=== PATIENT | female | born 1970 | race Caucasian/White ===

== ENCOUNTER → 2019-12-19 | Outpatient (REF) | payer OTHER ==
[2019-12-19 17:10] LABS: FREE T4 0.93 NG/DL (0.76-1.46); THYROID STIMULATING HORMONE 1.22 uIU/ML (0.358-3.740); TOTAL 25(OH) VITAMIN D 24.3 NG/ML (30.0-100.0)
== END ==
LOC: M SFHCRHEU 13:59
PROVIDERS: ATTEND Internal Medicine
DX: R53.82 Chronic fatigue, unspecified (principal)
CPT/HCPCS: 36415; 82306; 82728; 83540; 84439; 84443; G0463

== ENCOUNTER 2020-05-05 08:54 | Inpatient (IN) | payer OTHER ==
[~2020-05-05] VITALS: Ht 154.9 cm; Wt 42.9 kg
[2020-05-05] MEDS ORDERED: PROM12.56 (09:05)
[2020-05-05] MEDS ORDERED: SUCR1ORA2 (09:05)
[2020-05-05] MEDS ORDERED: METO5TAB2 (09:05)
[2020-05-05 09:40] LABS: BASO % 0.3 % (0.0-1.0); EOS % 0.5 % (0.0-3.0); HEMATOCRIT 42.9 % (36.0-47.0); HEMOGLOBIN 14.3 g/dl (12.0-15.5); LYMPH # 1.6 10^3/uL (1.5-5.0); LYMPH % 24.5 % (24.0-44.0); MEAN CORPUSCULAR HEMOGLOBIN 30.4 pg (27.0-33.0); MEAN CORPUSCULAR HGB CONC 33.3 g/dl (32.0-36.5); MEAN CORPUSCULAR VOLUME 91.1 fl (80.0-96.0); MONO # 0.7 10^3/uL (0.0-0.8); MONO % 11.4 % (0.0-5.0); NEUTROPHILS # 4.1 10^3/uL (1.5-8.5); NEUTROPHILS % 63.1 % (36.0-66.0); PLATELET COUNT, AUTOMATED 264 10^3/uL (150-450); RED BLOOD COUNT 4.71 10^6/uL (4.00-5.40); WHITE BLOOD COUNT 6.5 10^3/uL (4.0-10.0)
[2020-05-05 10:02] LABS: ALBUMIN 4.2 GM/DL (3.2-5.2); BILIRUBIN,DIRECT 0.1 MG/DL (0.0-0.2); BILIRUBIN,TOTAL 0.5 MG/DL (0.2-1.0)
[2020-05-05] MEDS ORDERED: ONDANSETRON 4MG/2ML VIAL IV ONE (10:15)
[2020-05-05] MEDS ORDERED: NS 1,000 ML IV ONE (10:15)
[2020-05-05 10:17] LABS: MAGNESIUM LEVEL 2.2 MG/DL (1.8-2.4)
[2020-05-05] MEDS ORDERED: ISOVUE-370 76% 100ML VIAL As Ordered ONE (10:29)
[2020-05-05 10:40] LABS: THYROID STIMULATING HORMONE 1.48 uIU/ML (0.358-3.740)
[2020-05-05] MEDS ORDERED: ACET-840 PO (12:36)
--- NOTE | 2020-05-05 14:57 | REP ---
REASON FOR EXAM: Abdominal pain. PRIORS: None. CONTRAST: 100 mL of Isovue 370. The patient states there was a prior CT of the abdomen and pelvis at [facility], however, secondary to the emergent nature of today's examination, this examination will be interpreted without the prior for comparison. If and when the prior becomes available for review an addendum report will be made necessary. The lung bases are clear. There is gross gastric distention with predominantly fluid but with gas as well. The duodenum appears extremely narrowed, however, there is some fluid seen distal to the narrow portion of the duodenum, which again undergoes luminal narrowing at the level of the duodenal sweep/fourth portion. There is gas within multiple small bowel loops with gas and stool seen throughout the colon. There is a small amount of free fluid seen in the periduodenal area without evidence of free periduodenal air. No free air is seen throughout the abdomen or pelvis. The liver, gallbladder, spleen, pancreas, and adrenal glands and kidneys are within normal limits. The abdominal aorta and para-aortic regions are within normal limits. Bone window technique throughout the examination shows the osseous structures to be within normal limits. IMPRESSION: 1. There is evidence of at least partial gas outlet obstruction. There is significant duodenal edema and fluid in the periduodenal area. In addition, the aorta/SMA interval is very narrowed and compresses both the duodenal sweep and the left renal vein. This could, at least, impart be responsible for the suspected partial gastric outlet obstruction. In addition, I cannot rule out the possibility of a duodenal ulcer responsible for the aforementioned findings as well. 2. Other findings as described above. Electronically Signed by Pieter Barnett DO 05/05/2020 05:28 P
[2020-05-05] MEDS ORDERED: KETOROLAC 30 MG/ML 1ML VIAL IV PRN (16:15)
[2020-05-05] MEDS ORDERED: MORPHINE 2 MG/ML 1ML VIAL (J2270) IV PRN (16:15)
[2020-05-05] MEDS ORDERED: ONDANSETRON 4MG/2ML VIAL IV PRN (16:15)
[2020-05-05] MEDS: D5W/LR 1,000 ML IV SCH (16:42)
[2020-05-05 20:14] VITALS: BP 132/82
[2020-05-05] MEDS: PANTOPRAZOLE 40MG VIAL (C9113 PER 1) IV SCH (20:43)
[2020-05-05 22:00] VITALS: BP 119/70
[2020-05-06] MEDS: D5W/LR 1,000 ML IV SCH ×2 (00:21→08:33)
[2020-05-06 02:00] VITALS: BP 115/56
[2020-05-06 06:00] VITALS: BP 111/68
--- NOTE | 2020-05-06 07:27 | REP ---
CHEST: Two AP views of the chest are performed. There is a nasogastric tube. The sideport is at the gastroesophageal junction. The tube should be advanced. Lungs are free of infiltrate. Heart and mediastinum are unremarkable. Electronically Signed by Kevin Blount MD 05/07/2020 09:12 A
[2020-05-06 07:41] LABS: BASO % 0.5 % (0.0-1.0); EOS # 0.2 10^3/uL (0.0-0.5); EOS % 3.4 % (0.0-3.0); HEMATOCRIT 35.6 % (36.0-47.0); LYMPH # 1.6 10^3/uL (1.5-5.0); LYMPH % 35.2 % (24.0-44.0); MEAN CORPUSCULAR HEMOGLOBIN 30.5 pg (27.0-33.0); MEAN CORPUSCULAR HGB CONC 33.1 g/dl (32.0-36.5); MONO # 0.5 10^3/uL (0.0-0.8); MONO % 10.6 % (0.0-5.0); NEUTROPHILS # 2.2 10^3/uL (1.5-8.5); NEUTROPHILS % 50.1 % (36.0-66.0); PLATELET COUNT, AUTOMATED 216 10^3/uL (150-450); RED BLOOD COUNT 3.87 10^6/uL (4.00-5.40); WHITE BLOOD COUNT 4.4 10^3/uL (4.0-10.0)
[2020-05-06 08:02] LABS: HEMOGLOBIN 11.8 g/dl (12.0-15.5)
[2020-05-06 08:14] LABS: BLOOD UREA NITROGEN 13 MG/DL (7-18); CALCIUM LEVEL 8.5 MG/DL (8.5-10.1); CARBON DIOXIDE LEVEL 32 MEQ/L (21-32); CHLORIDE LEVEL 103 MEQ/L (98-107); CREATININE FOR GFR 0.58 MG/DL (0.55-1.30); GLOMERULAR FILTRATION RATE > 60.0 (>51); GLUCOSE, FASTING 110 MG/DL (70-100); POTASSIUM SERUM 2.9 MEQ/L (3.5-5.1); SODIUM LEVEL 140 MEQ/L (136-145)
[2020-05-06] MEDS: PANTOPRAZOLE 40MG VIAL (C9113 PER 1) IV SCH ×2 (08:33→21:44)
[2020-05-06 11:00] VITALS: BP 118/70
[2020-05-06 14:00] VITALS: BP 124/60
[2020-05-06] MEDS: POTASSIUM CHLORIDE INJ 40 MEQ in D5W/LR 1,000 ML IV SCH (16:43)
[2020-05-06 18:00] VITALS: BP 119/58
[2020-05-06 22:00] VITALS: BP 131/67
[2020-05-07 02:00] VITALS: BP 108/56
[2020-05-07] MEDS: POTASSIUM CHLORIDE INJ 40 MEQ in D5W/LR 1,000 ML IV SCH ×2 (05:10→16:10)
[2020-05-07 06:00] VITALS: BP 113/70
[2020-05-07] MEDS: PANTOPRAZOLE 40MG VIAL (C9113 PER 1) IV SCH ×2 (08:39→21:08)
--- NOTE | 2020-05-07 08:42 | IPN ---
DATE OF SERVICE: 05/06/2020 HISTORY: The patient was admitted yesterday with a several-month history leading up to a gastric outlet obstruction diagnosis. She has been unable to keep down any food for quite some time and has lost 13-18 pounds. She was admitted with a nasogastric (NG) tube and intravenous (IV) hydration. She initially drained a fairly large amount of fluid from the tube but overnight has had minimal output. She reports she has had a small amount of flatus, and she denies any abdominal pain currently. VITAL SIGNS: Show that she has been afebrile. Her pulse is in the low to mid 70s, and blood pressure is good. INTAKE AND OUTPUT: Showed that she has had a good urine output this morning. Her NG tube has had only 25 mL recorded out today. PHYSICAL EXAMINATION: The patient is sitting up in the bed dabbing at her nose because of some drainage around the NG tube. This appears to be just local irritation. She is alert and oriented and does complain of some throat discomfort from the NG tube. Heart examination shows a regular rhythm. Her lungs are clear. The abdomen shows active bowel sounds and is soft and without any tenderness. LABORATORY STUDIES: Today show a white count of 4000, hemoglobin 12, hematocrit 36, and a platelet count of 216,000. Differential count is normal. Her chemistry profile shows a potassium of 2.9, which is unchanged from yesterday. Her other electrolytes are normal. IMPRESSION: The patient has a history and CT scan consistent with gastric outlet obstruction. The etiology is unknown. The CT scan showed no evidence of mass. PLAN: The patient will be continued on her twice-daily Protonix IV. Her NG tube will be discontinued, as it has had minimal out. She will remain nothing by mouth. She is scheduled for an upper endoscopy tomorrow to try to diagnose the etiology of her obstruction. Additional potassium will be placed in her IV fluid, and the rate will be decreased. A COVID-19 test will be obtained preoperatively. JACKLYND
--- NOTE | 2020-05-07 08:58 | HPE ---
DATE OF ADMISSION: 05/05/2020 ADMITTING DIAGNOSIS: Gastric outlet obstruction. HISTORY OF THE PRESENT ILLNESS: The patient is a very pleasant 49-year-old woman who presented to the emergency department at 8:54 a.m. on 05/05/2020 complaining of persistent nausea and vomiting with an inability to take oral intake and loss of weight. She reported that she had been having problems, particularly since December of 2019. She does report that she had some problems similar in nature back in 2015. She reports that since December, her problems have worsened. She has had progressively worsening difficulty with food coming back up after meals. She reports crampy abdominal pains. She has been having some bowel function, but this is diminished. She reports that she was seen at [facility] on 04/06/2020 with complaints of dizziness and weakness. She was then seen again at [facility] on 04/25/2020. She reports that in November, she weighed 102 pounds, and her weight is currently down to about 88 pounds. She reports that she will eat, and then she will have this sensation of bubbling or churning in the abdomen with cramps, and eventually she will vomit back up most if not all of what she has eaten. She had been taking some [id number]-nwi-fpbvope Pepcid. She was recently provided some Reglan and Carafate by either the [facility] or her primary physician, Dr. Nelson. She reports that she had been requesting a referral to gastroenterology, but this had not yet been accomplished. In the emergency department at [facility], she was evaluated with some laboratory work and also had a CT scan of the abdomen and pelvis obtained. The CT scan revealed a distended and enlarged stomach. The radiologist reported evidence for narrowing of the duodenum. He did report that there was some gas within some small bowel loops and stool in the colon. The patient had a nasogastric tube inserted in the emergency department, and she is now admitted for further evaluation and management of her apparent gastric outlet obstruction. ALLERGIES: The patient reports no known drug allergies.. MEDICATIONS: Her current listed medications include only some acetaminophen on an as-needed basis. She had been provided previously with some Reglan and promethazine and Carafate but indicates that at the time of her admission, she has not actually been taking these. She had also occasionally taken some [id number]-[id number] Pepcid. SURGICAL HISTORY: Is significant for a tubal ligation back in 1996. MEDICAL HISTORY: The patient had undergone evaluation for some positive rheumatologic tests in November. Apparently, the tests pointed towards scleroderma, but the moderate needs teacher did not feel this was the case. She has no other active medical issues beyond her gastrointestinal (GI) problem. SOCIAL HISTORY: The patient has been helping care for her mother. She is and is a dependent. She is a former smoker and reports that she quit any tobacco use a month ago. She denies any alcohol intake. REVIEW OF SYSTEMS: Shows no history of chest pain or palpitations. She has no respiratory symptoms. She has no history of deep venous thrombosis (DVT) or pulmonary embolus. She denies any dysuria or hematuria or renal problems. She has no bone or joint issues. She has not noticed any rectal bleeding or hematemesis. She denies any history of hepatitis, pancreatitis, or jaundice. FAMILY HISTORY: The patient reports that her mother has had stomach issues, though these are not defined. PHYSICAL EXAMINATION: Reveals a very thin pleasant woman sitting up in the stretcher. She is alert and oriented. Most recent vital signs are reviewed. She is not tachycardiac, and her blood pressure is good. The patient does become emotional when describing her persistent problems and her inability so far to have obtained an answer to why she is having so many problems. Skin: Is warm and dry. Sclerae are anicteric. Mucous membranes are moist. The neck is supple without mass. She has no supraclavicular adenopathy. Heart examination shows a regular rate and rhythm. The lungs are clear. The abdomen is flat to perhaps mildly protuberant. She does have bowel sounds present. She has some mild tenderness in the right upper quadrant area. There is no mass appreciated. There is no hernia identified. Extremities are thin with palpable radial and pedal pulses and no edema. LABORATORY STUDIES: Include a complete blood count (CBC) showing a white count of 6, hemoglobin of 14, hematocrit 43, and platelet count of 264,000. Differential count shows 63% neutrophils, 24% lymphocytes, and 11% monocytes. Chemistry profile included a point of care chemistry profile showing a glucose of 113, potassium 2.9, chloride of 89, with a BUN of 24, and a creatinine of 0.9. Her liver function tests were all normal with a normal magnesium. Albumin is 4.2 with a protein of 8, and her lipase is normal at 123. She had a TSH level done that was 1.48. Her CT scan images and report I reviewed personally. She definitely has a markedly enlarged stomach. The course of the duodenum past the duodenal bulb is not entirely clear to me on reviewing her CAT scan, as this is not outlined by contrast or air. She does have some air and fluid more distally in the small bowel. IMPRESSION: Is gastric outlet obstruction with 3-4 months of progressive symptoms. She has had a weight loss of approximately 15 pounds over this period of time. PLAN: The patient was counseled that she clearly has a blockage of the outlet of her stomach, and this very nicely explains her symptoms. I advised her that the probably most common cause for a gastric outlet obstruction would be severe peptic ulcer disease. It is also possible that this could be caused by a malignant lesion, either of the stomach or duodenum or pancreas, although there was no mass identified by CT. I have recommended that we admit her to treat her for her inability to tolerate any oral intake at this point but also try to identify the cause of her obstruction. The NG tube will be continued to low intermittent suction at this point. I will continue her on some IV fluids. If it is clear that her obstruction persists despite treatment, then initiation of total parenteral nutrition would be appropriate. I advised her that we will need to perform an upper endoscopy within the next day or two to try to diagnose the etiology of her obstruction. She will be started on Protonix 40 mg IV twice daily. She does not require any antibiotics at this time. We will recheck her laboratories in the morning. She had an opportunity to ask questions. She is agreeable with the plan as I have outlined it. [facility]
[2020-05-07] MEDS ORDERED: LIDOCAINE 2% 100MG/5ML SDV (FOR ANES.) As Ordered ONE (09:13)
[2020-05-07] MEDS ORDERED: propofoL 200 MG/20 ML VIAL As Ordered ONE (09:13)
[2020-05-07] MEDS ORDERED: KCL 10MEQ IN STERILE WATER 100ML As Ordered ONE (10:24)
[2020-05-07] MEDS ORDERED: KCL 10MEQ/100ML SWI (KRUN) SINGLE DOSE IV ONE ×2 (10:45)
--- NOTE | 2020-05-07 12:31 | ROOR ---
Patient Name: Dustin Alfaro Procedure Date: 05/07/2020 10:11 AM Date of : 1970 Age: 49 Room: Main OR Gender: Female Note Status: Finalized Procedure: Upper GI endoscopy Indications: Gastric outlet obstruction Providers: Milad Edouard MD Referring MD: 2. Inpatient 2. Inpatient Requesting Provider: Medicines: Monitored Anesthesia Care Complications: No immediate complications. Procedure: Pre-Anesthesia Assessment: - Prior to the procedure, a History and Physical was performed, and patient medications and allergies were reviewed. The patient is competent. The risks and benefits of the procedure and the sedation options and risks were discussed with the patient. All questions were answered and informed consent was obtained. Patient identification and proposed procedure were verified by the physician, the nurse and the rake operator in the procedure room. Mental Status Examination: alert and oriented. Airway Examination: normal oropharyngeal airway and neck mobility. Prophylactic Antibiotics: The patient does not require prophylactic antibiotics. Prior Anticoagulants: The patient has taken no previous anticoagulant or antiplatelet agents. ASA Grade Assessment: II - A patient with mild systemic disease. After reviewing the risks and benefits, the patient was deemed in satisfactory condition to undergo the procedure. The anesthesia plan was to use monitored anesthesia care (MAC). Immediately prior to administration of medications, the patient was re-assessed for adequacy to receive sedatives. The heart rate, respiratory rate, oxygen saturations, blood pressure, adequacy of pulmonary ventilation, and response to care were monitored throughout the procedure. The physical status of the patient was re-assessed after the procedure. The Endoscope was introduced through the mouth, and advanced to the pylorus. The upper GI endoscopy was accomplished without difficulty. The patient tolerated the procedure well. Findings: The examined esophagus was normal. A medium amount of food (residue) was found on the greater curvature of the stomach. A benign-appearing, intrinsic severe stenosis was found at the pylorus. This was non-traversed. There appeared to be a pinpint opening. The mucosa extending to thie point appeared normal. One non-bleeding linear gastric ulcer with no stigmata of bleeding was found in the prepyloric region of the stomach. The lesion was 7 mm in largest dimension. There was some deformity of this area. Impression: - Normal esophagus. - A medium amount of food (residue) in the stomach. - Gastric stenosis was found at the pylorus. - Non-bleeding gastric ulcer with no stigmata of bleeding. - No specimens collected. Recommendation: - Return patient to [facility] for [facility] care. - NPO. - Perform magnetic resonance imaging (MRI) with gadolinium at appointment to be scheduled. Milad Edouard MD Milad Edouard MD 05/07/2020 12:31:07 PM Electronically signed by Milad Edouard MD Number of Addenda: 0 Note Initiated On: 05/07/2020 10:11 AM Estimated Blood Loss: Estimated blood loss: none.
[2020-05-07] MEDS ORDERED: LIDOCAINE 1% MDV 20ML VIAL As Ordered ONE (12:43)
[2020-05-07 14:47] LABS: BLOOD UREA NITROGEN 8 MG/DL (7-18); CALCIUM LEVEL 8.6 MG/DL (8.5-10.1); CARBON DIOXIDE LEVEL 31 MEQ/L (21-32); CHLORIDE LEVEL 110 MEQ/L (98-107); CREATININE FOR GFR 0.52 MG/DL (0.55-1.30); GLOMERULAR FILTRATION RATE > 60.0 (>51); GLUCOSE, FASTING 74 MG/DL (70-100); POTASSIUM SERUM 3.8 MEQ/L (3.5-5.1); SODIUM LEVEL 144 MEQ/L (136-145)
[2020-05-07] MEDS ORDERED: AMINO AC/ELECTROLYTE/DEX/CALC 2,000 ML IV SCH (18:00)
[2020-05-07] MEDS ORDERED: FAT EMULSION IV 20% 500 ML IV SCH (18:00)
[2020-05-07] MEDS ORDERED: PROHANCE 279.3MG/ML 5ML VIAL As Ordered ONE (18:04)
[2020-05-07] MEDS: SODIUM CHLORIDE 0.9% INJ 10 ML SYR IV SCH (19:03)
--- NOTE | 2020-05-07 20:58 | REPVR ---
PROCEDURE INFORMATION: Exam: MR Abdomen Without and With Contrast Exam date and time: 05/07/2020 6:36 PM Age: 49 years old Clinical indication: Abdominal tenderness and bloating and constipation and mass, lump, or swelling and nausea and vomiting; Epigastric; Patient HX: Pain nausea vomiting diarrhea, attn pancreas; Additional info: Gastric outlet obstruction, evaluate for tumor TECHNIQUE: Imaging protocol: MR of the abdomen without and with intravenous contrast. Contrast material: PROHANCE; Contrast volume: 8 ml; Contrast route: INTRAVENOUS (IV); COMPARISON: CT ABD/PEL W/IV CONTRAST ONLY 05/05/2020 10:38 AM FINDINGS: Liver: The liver is normal. Gallbladder and bile ducts: The gallbladder is normal.No calcified calculi. Normal bile ducts. Pancreas: The pancreas is normal. Spleen: The spleen is normal. Adrenals: The adrenals are normal. Kidneys and ureters: The kidneys are normal.No hydronephrosis. Stomach and bowel: The stomach is distended and contains debris and fluid. There is a 4 cm length of the descending duodenum which is persistently circumferentially thick-walled. Series 301 images 10-12 series 501 images 19-21. Also seen on series 602, images 18 to 21. Intraperitoneal space: Unremarkable Arteries: No abdominal aortic aneurysm. Bones/joints: Unremarkable for Soft tissues: Unremarkable. IMPRESSION: Gastric distension. The descending duodenum appears persistently thick-walled on multiple sequences. This could represent inflammation or neoplasm. Electronically signed by: Álvaro Scott On 05/07/2020 20:58:07 PM
[2020-05-07] MEDS: SODIUM CHLORIDE 0.9% INJ 10 ML SYR IV PRN (21:08)
[2020-05-07 22:00] VITALS: BP 152/72
[2020-05-08 02:00] VITALS: BP 129/81
[2020-05-08] MEDS: SODIUM CHLORIDE 0.9% INJ 10 ML SYR IV SCH ×2 (05:43→19:03)
[2020-05-08 06:00] VITALS: BP 127/64
[2020-05-08] MEDS: PANTOPRAZOLE 40MG VIAL (C9113 PER 1) IV SCH ×2 (08:44→20:13)
[2020-05-08] MEDS: SODIUM CHLORIDE 0.9% INJ 10 ML SYR IV PRN (08:53)
[2020-05-08 09:43] LABS: CA19-9 TUMOR MARKER,CARBOHYDRA 8.9 U/ML (<35.0)
[2020-05-08 10:00] VITALS: BP 126/80
--- NOTE | 2020-05-08 10:10 | IPN ---
DATE: 05/07/2020 HISTORY: The patient was admitted on May 05 with a history and CT scan consistent with gastric outlet obstruction. She had an upper endoscopy earlier today which shows perhaps a pinpoint opening at the pylorus with evidence of some deformity and an ulcer just proximal to the pinpoint opening seen. She had some retained food products in the stomach. Vital signs show that she has remained afebrile over the last 24 hours. Her pulse is in the 60s to low 80s. Blood pressure is good and her room air oxygenation is normal. Intake and output show that she had 1230 recorded in yesterday, though this is less than what would be expected from her IV fluids. Her urine output yesterday was 550 and her urine output has increased today. PHYSICAL EXAMINATION: The patient has been alert and oriented. She tolerated her upper endoscopy well. Heart exam shows a regular rate and rhythm. The lungs are clear. The abdomen is flat. She does have active bowel sounds. The abdomen is soft and without significant tenderness. LABORATORY FINDINGS: The patient had a med profile after her endoscopy and this shows a sodium of 144, potassium 3.8, chloride 110, CO2 of 31, BUN of 8, creatinine 0.5 and a glucose of 74. She has a CA 19-9 and a gastrin level that are both pending. IMPRESSION: Gastric outlet obstruction likely secondary to longstanding ulcer disease, though tumor has not been definitively ruled out. PLAN: The patient will have a peripherally inserted central catheter (PICC) line placed and she will be started on intravenous nutrition. An MRI will be obtained to further evaluate the pancreas and duodenum to look for any evidence of malignancy. The gastrin and CA 19-9 were ordered. I anticipate she will come to surgery based on her gastric outlet obstruction. SKYE
[2020-05-08 14:00] VITALS: BP 132/85
[2020-05-08 18:00] VITALS: BP 122/83
[2020-05-08] MEDS ORDERED: AMINO AC/ELECTROLYTE/DEX/CALC 2,000 ML IV SCH (18:00)
[2020-05-08] MEDS ORDERED: FAT EMULSION IV 20% 500 ML IV SCH (18:00)
[2020-05-08 22:00] VITALS: BP 124/83
[2020-05-09 02:00] VITALS: BP 119/81
[2020-05-09] MEDS: SODIUM CHLORIDE 0.9% INJ 10 ML SYR IV SCH ×2 (05:43→17:51)
[2020-05-09 06:00] VITALS: BP 116/80
--- NOTE | 2020-05-09 06:36 | IPN ---
DATE: 05/08/2020 HISTORY: The patient was admitted on 05/05/2020 with evidence for a gastric outlet obstruction. Her esophagogastroduodenoscopy (EGD) showed a pinhole opening perhaps into the duodenum. She had a followup MRI, which reported no evidence of pancreatic mass. She was seen to have a distended stomach with a 4 cm length of the second portion of the duodenum persistently circumferentially thick-walled. There was no concerning adenopathy. The patient has been kept nothing by mouth and has not had any emesis or complaints of abdominal pain. She was started on total parenteral nutrition (TPN) yesterday as well. Vital signs show that she has been afebrile. Her pulse has been in the 60s to about 90. Blood pressure is good and her oxygen saturations are normal. Intake and output shows that yesterday she had 1300 recorded in with 1000 of urine out. PHYSICAL EXAMINATION: The patient is sitting upright in her bed looking quite comfortable. She is actually fairly cheerful. Abdomen is thin and flat. She has positive bowel sounds. Laboratory studies from yesterday included a CA 19-9 that was normal at 8.9. A gastrin level was drawn and is pending. IMPRESSION: The patient has a gastric outlet obstruction, which I suspect strongly is related to longstanding peptic ulcer disease. PLAN: She will continue TPN and proton pump inhibitors twice daily. She will be kept nothing by mouth as she appears to be tolerating her own secretions at least. She does report some flatus. I have recommended that on Monday we obtain a gastrograffin swallow to see if we can document some flow through her duodenum, which might suggest a slight improvement. If she has not improved and the swallow shows no significant passage of contrast, then I think surgery on 05/12/2020, would be warranted. [facility]
[2020-05-09 07:17] LABS: ALBUMIN 3.1 GM/DL (3.2-5.2); ALT/SGPT 15 U/L (12-78); BILIRUBIN,TOTAL 0.4 MG/DL (0.2-1.0); BLOOD UREA NITROGEN 13 MG/DL (7-18); CALCIUM LEVEL 8.4 MG/DL (8.5-10.1); CARBON DIOXIDE LEVEL 28 MEQ/L (21-32); CHLORIDE LEVEL 107 MEQ/L (98-107); CREATININE FOR GFR 0.48 MG/DL (0.55-1.30); GLOMERULAR FILTRATION RATE > 60.0 (>51); GLUCOSE, FASTING 97 MG/DL (70-100); POTASSIUM SERUM 3.6 MEQ/L (3.5-5.1); SODIUM LEVEL 142 MEQ/L (136-145); TOTAL PROTEIN 6.2 GM/DL (6.4-8.2)
[2020-05-09] MEDS: PANTOPRAZOLE 40MG VIAL (C9113 PER 1) IV SCH ×2 (08:14→19:58)
[2020-05-09] MEDS: SODIUM CHLORIDE 0.9% INJ 10 ML SYR IV PRN (08:15)
[2020-05-09 10:00] VITALS: BP 115/74
[2020-05-09 14:00] VITALS: BP 113/70
[2020-05-09 18:00] VITALS: BP 118/68
[2020-05-09] MEDS ORDERED: AMINO AC/ELECTROLYTE/DEX/CALC 2,000 ML IV SCH (18:00)
[2020-05-09] MEDS ORDERED: FAT EMULSION IV 20% 500 ML IV SCH (18:00)
[2020-05-09 22:00] VITALS: BP 112/70
[2020-05-10 02:00] VITALS: BP 108/67
[2020-05-10 06:00] VITALS: BP 105/67
[2020-05-10] MEDS: SODIUM CHLORIDE 0.9% INJ 10 ML SYR IV SCH ×2 (06:08→18:26)
[2020-05-10] MEDS: PANTOPRAZOLE 40MG VIAL (C9113 PER 1) IV SCH ×2 (08:02→20:18)
[2020-05-10] MEDS: SODIUM CHLORIDE 0.9% INJ 10 ML SYR IV PRN ×2 (08:03→20:19)
--- NOTE | 2020-05-10 09:14 | IPN ---
DATE: 05/09/2020 HISTORY: The patient was admitted on 05/05/2020 with a gastric outlet obstruction. Upper endoscopy revealed a pinpoint opening out of the stomach with some superficial ulceration in the distal stomach or pylorus. An MRI showed no evidence of mass, but persistent narrowing of the descending duodenum. A CA 19-9 is normal and her gastrin level ordered on 05/07/2020 has not returned elevated at 175. She is currently nothing by mouth and on total parenteral nutrition. She reports that she feels fine with no pain at all and she has had no nausea or vomiting while nothing by mouth. Vital signs show that she is afebrile with a pulse in the 80s and a normal blood pressure. Room air oxygen saturation is normal. Intake and output shows that her total parenteral nutrition intake is not recorded. Her urine output was brisk at 3100 mL on 05/08/2020. She does report passage of flatus but has not had a bowel movement. PHYSICAL EXAMINATION: The patient is actually quite perky and pleasant today. Heart and lung exam is unremarkable. The abdomen is thin and flat. She has active bowel sounds. There is no tenderness. LABORATORY STUDIES: The patient had a chemistry profile today. Her sodium was 142 with a potassium 3.6. Chloride 107, CO2 is 28, BUN 13, creatinine 0.48, and a glucose of 97. Her total protein is 6.2 with an albumin of 3.1. As noted, her gastrin was 175 with a normal reported range of zero to 115. IMPRESSION: The patient has a gastric outlet obstruction at the level of the duodenum. She has had several months of symptoms culminating her admission. Her CT and MRI do not show any pancreatic pathology, only thickening of her duodenum. Interestingly, she is tolerating her own secretions on twice daily Protonix without the need of a nasogastric (NG) tube. PLAN: The patient will have a gastrograph swallow on Monday morning to see if we can document some flow out of the stomach. If this is the case, then attempting a repeat endoscopy possibly with dilation may be appropriate. If flow is minimal or cannot be documented, then proceeding with surgery I think would be the next reasonable step. The patient was counseled regarding this plan and is agreeable.
[2020-05-10 10:00] VITALS: BP 109/74
[2020-05-10 14:00] VITALS: BP 108/73
--- NOTE | 2020-05-10 17:27 | IPN ---
DATE: 05/10/2020 HISTORY: The patient is being treated for gastric outlet obstruction. She had presented on the with several months of worsening crampy abdominal pain with postprandial vomiting and weight loss. She is currently on total parenteral nutrition and twice daily IV Protonix. She is tolerating her own secretions with no vomiting or abdominal pain while nothing by mouth. Vital signs show that her temperature has been afebrile. Her pulse is in the 80s generally and her blood pressure is good. Intake and output show that yesterday she had 1920 recorded in with [id number] recorded out. PHYSICAL EXAMINATION: The patient is alert and very pleasant. She denies any pain. Skin is warm and dry. Heart exam shows a regular rhythm. The abdomen is thin and flat and without any tenderness. She has not had any further labs today. IMPRESSION: The patient is doing well and tolerating her own secretions while nothing by mouth. PLAN: We will obtain a gastrograph and swallow tomorrow morning to try to better estimate whether she might tolerate a clear liquid diet or not. If this shows persistent obstruction then surgical intervention is tentatively scheduled for Monday. If there is some flow into the duodenum then repeat endoscopy and consideration of dilation may be appropriate.
[2020-05-10 18:00] VITALS: BP 108/73
[2020-05-10] MEDS ORDERED: AMINO AC/ELECTROLYTE/DEX/CALC 2,000 ML IV SCH (18:00)
[2020-05-10] MEDS ORDERED: FAT EMULSION IV 20% 500 ML IV SCH (18:00)
[2020-05-10 22:00] VITALS: BP 107/73
--- NOTE | 2020-05-10 23:46 | REP ---
PICC line insertion under ultrasound guidance. The procedure was performed by MARGE Vallejo, under the direct supervision of Dr. Blount. The risks and benefits of the procedure were explained to the patient and informed consent was obtained both verbally and written. Directly prior to the start of the procedure, a formal timeout was completed in the procedure room. The right medial brachial vein was localized using ultrasound guidance. The skin was prepped and draped in the sterile fashion. Using ultrasound guidance the right medial brachial vein was cannulated and a 0.018 guidewire was inserted and advanced to the SVC using fluoroscopic guidance. The needle was removed and a 5.5 Nigerian dilator and peel-away sheath was inserted over the guidewire. A 5.5 Nigerian dual lumen catheter was cut to the length of 30 cm. The dilator was removed and the catheter was inserted over the guide wire with the tip ending in the SVC. The peel-away sheath was removed and the catheter was flushed with heparinized saline as per hospital protocol. The catheter was affixed to the skin and a sterile dressing was applied. The patient tolerated the procedure well and there were no immediate complications. 0.3 minutes of fluoroscopy time was utilized for this procedure. Some fluoroscopic images are performed with last image hold technology. These images require no additional radiation. Reviewed by MARGE Malhotra 05/08/2020 07:37 A Electronically Signed by Kevin Blount MD 05/10/2020 11:37 P
[2020-05-11 02:00] VITALS: BP 104/71
[2020-05-11] MEDS: SODIUM CHLORIDE 0.9% INJ 10 ML SYR IV SCH ×2 (05:36→18:56)
[2020-05-11 06:00] VITALS: BP 103/70
[2020-05-11] MEDS: PANTOPRAZOLE 40MG VIAL (C9113 PER 1) IV SCH ×2 (08:02→20:29)
[2020-05-11 10:00] VITALS: BP 103/70
[2020-05-11] MEDS ORDERED: E-Z-PAQUE 96% w/w SUSP 176GM BTL As Ordered ONE (10:12)
[2020-05-11] MEDS ORDERED: E-Z-HD 98% w/w 340GM SUSP BTL As Ordered ONE (10:12)
[2020-05-11] MEDS ORDERED: E-Z-GAS II EFFERVESCENT PACKET (SODIUM BICARB./CITRIC ACID/SIMETHICONE) As Ordered ONE (10:12)
[2020-05-11] MEDS ORDERED: GASTROGRAFIN SOLUTION 30ML (Q9963) As Ordered ONE (10:45)
[2020-05-11 14:00] VITALS: BP 103/70
[2020-05-11 18:00] VITALS: BP 105/71
[2020-05-11] MEDS ORDERED: FAT EMULSION IV 20% 500 ML IV SCH (18:00)
[2020-05-11] MEDS ORDERED: AMINO AC/ELECTROLYTE/DEX/CALC 2,000 ML IV SCH (18:00)
[2020-05-11] MEDS: SODIUM CHLORIDE 0.9% INJ 10 ML SYR IV PRN (20:32)
--- NOTE | 2020-05-11 21:59 | REPVR ---
PROCEDURE INFORMATION: Exam: XR Chest, 1 View Exam date and time: 05/11/2020 8:59 PM Age: 49 years old Clinical indication: Device placement; Ng tube; Additional info: Check placement of newly dropped ng TECHNIQUE: Imaging protocol: XR of the chest Views: 1 view. COMPARISON: CR Chest, 1 view 05/05/2020 2:28 PM FINDINGS: Tubes, catheters and devices: NG tube courses through the mediastinum into the left upper quadrant. Inferior tip not visualized although likely located within the gastric body. PICC line enters from the right with the tip at the superior cavoatrial junction. Lungs: Unremarkable. No consolidation. Pleural space: Unremarkable. No pleural effusion. No pneumothorax. Heart/Mediastinum: Unremarkable. No cardiomegaly. Bones/joints: Unremarkable. IMPRESSION: NG tube courses through the mediastinum into the left upper quadrant. Inferior tip not visualized although likely located within the gastric body. Electronically signed by: Andrea Silva On 05/11/2020 21:59:16 PM
[2020-05-11 22:00] VITALS: BP_SYST 114; BP_SYST 121; BP_DIAS 73; BP_DIAS 90
[2020-05-12 02:00] VITALS: BP 108/77
[2020-05-12] MEDS: SODIUM CHLORIDE 0.9% INJ 10 ML SYR IV SCH ×2 (05:35→18:18)
[2020-05-12 06:00] VITALS: BP 110/75
[2020-05-12 06:03] LABS: BASO % 0.5 % (0.0-1.0); EOS # 0.2 10^3/uL (0.0-0.5); EOS % 5.7 % (0.0-3.0); HEMATOCRIT 38.3 % (36.0-47.0); HEMOGLOBIN 12.3 g/dl (12.0-15.5); LYMPH # 1.1 10^3/uL (1.5-5.0); LYMPH % 28.6 % (24.0-44.0); MEAN CORPUSCULAR HEMOGLOBIN 29.6 pg (27.0-33.0); MEAN CORPUSCULAR HGB CONC 32.1 g/dl (32.0-36.5); MEAN CORPUSCULAR VOLUME 92.3 fl (80.0-96.0); MONO # 0.2 10^3/uL (0.0-0.8); MONO % 6.2 % (0.0-5.0); NEUTROPHILS # 2.3 10^3/uL (1.5-8.5); NEUTROPHILS % 58.5 % (36.0-66.0); PLATELET COUNT, AUTOMATED 184 10^3/uL (150-450); RED BLOOD COUNT 4.15 10^6/uL (4.00-5.40); WHITE BLOOD COUNT 3.9 10^3/uL (4.0-10.0)
[2020-05-12 06:22] LABS: ALBUMIN 3.1 GM/DL (3.2-5.2); ALT/SGPT 70 U/L (12-78); BILIRUBIN,TOTAL 0.2 MG/DL (0.2-1.0); BLOOD UREA NITROGEN 25 MG/DL (7-18); CALCIUM LEVEL 8.6 MG/DL (8.5-10.1); CARBON DIOXIDE LEVEL 30 MEQ/L (21-32); CHLORIDE LEVEL 109 MEQ/L (98-107); CREATININE FOR GFR 0.56 MG/DL (0.55-1.30); GLOMERULAR FILTRATION RATE > 60.0 (>51); GLUCOSE, FASTING 111 MG/DL (70-100); POTASSIUM SERUM 4.1 MEQ/L (3.5-5.1); SODIUM LEVEL 143 MEQ/L (136-145); TOTAL PROTEIN 7.3 GM/DL (6.4-8.2)
--- NOTE | 2020-05-12 06:36 | IPN ---
DATE: 05/11/2020 HISTORY: The patient was admitted this past week with symptoms and signs of a gastric outlet obstruction. CT and MRI show no evidence for malignancy. An upper endoscopy suggested a pinhole opening into the pylorus. She has tolerated nothing by mouth (n.p.o.) status with no abdominal pain or nausea and vomiting. A Gastrografin swallow was performed this morning which does show some flow of contrast through into the duodenum. There is no reading of this now approximately 8-10 hours since the study was done. There appears to be a short segmental stricture with the second portion of the duodenum looking more normal as outlined by contrast. VITAL SIGNS: The patient has been afebrile over the past 24 hours. The pulse is in the 80s to low 100s and her blood pressure is normal. INTAKE AND OUTPUT: Show that yesterday she had 1400 in with 1525 out, though I do not know that that shows complete recording of her parenteral nutrition. PHYSICAL EXAMINATION: The patient is alert and comfortable. She has active bowel sounds and the abdomen is soft and nontender. IMPRESSION: The patient has a gastric outlet obstruction that appears be related to a pyloric channel stricture. She does have some flow of contrast through this on her study today and has tolerated her own secretions for several days. PLAN: I spoke with Dr. Esparza of gastroenterology about the possibility of performing a further endoscopy with possible balloon dilation of her stricture. He is agreeable with attempting this procedure and will see the patient later today. He did ask that I have the NG tube placed back in to decompress her stomach overnight. She will be continued on her TPN.
[2020-05-12] MEDS: PANTOPRAZOLE 40MG VIAL (C9113 PER 1) IV SCH ×2 (08:48→20:08)
[2020-05-12] MEDS: SODIUM CHLORIDE 0.9% INJ 10 ML SYR IV PRN ×3 (08:50→22:10)
[2020-05-12 10:00] VITALS: BP 125/83
--- NOTE | 2020-05-12 12:34 | REP ---
Examination Requested: Gastrografin Upper G.I. Series With KUB Reason For Exam: Evaluate for gastric outlet obstruction Upper GI Air Contrast The procedure was performed by MARGE Vallejo, under the direct supervision of Dr. Blount. The images were reviewed with Dr. Blount. The stone spreader operator film shows no organomegaly or pathological masses. The intestinal gas pattern appears normal. 300 ml of a 50, 50 solution containing gastrograph and water was given in the erect position as well as in the prone oblique position in order to perform this examination. The oral and pharyngeal stages of deglutition were unremarkable. Esophageal transport is efficient and there is no esophagitis, stricture, or mucosal ring noted. Contrast passes freely through the GE junction. There is no hiatal hernia. Gastroesophageal reflux was not visualized during this exam. The stomach alba are normally outlined. The rugal folds are smooth and regular. There is no gastritis, neoplasm, ulcer disease noted. Contrast passes III freely through the pylorus and into the duodenum. There is no definitive stricture. Once reaching the duodenum. The contrast became diluted and the duodenal sweep is not well visualized. There is passage of contrast into small bowel loops in the pelvis on the 20-minute film after the examination. Impression: 1. Free flow of contrast through the GE junction, pylorus, and into the duodenum. 2. Limited visualization of the duodenal sweep due to dilution of contrast. 3. 20-minute delayed film demonstrates contrast in the small bowel loops in the pelvis. 0.6 minutes of fluoroscopy time was utilized for this procedure. Some fluoroscopic images are performed with last image hold technology. These images require no additional radiation. Reviewed by MARGE Malhotra 05/11/2020 04:17 P Electronically Signed by Kevin Blount MD 05/12/2020 12:24 P
--- NOTE | 2020-05-12 14:10 | CR.PDOC ---
General Date of Consultation: May 11, 2020 Referring Provider: Milad Edouard Attending Physician: KATHRINE JEROME MD Consultation Primary physician/ hospitalist: Dr. Edouard Reason for consult: Gastric outlet obstruction with abnormal imaging. HPI: 49 year old female patient with no chronic medical comorbidities, former smoker ( quit 1 month ago), was admitted to [facility] for persistent abdominal pain, nausea and vomiting and unable to keep her food down. Patient was noted to have gastric distention with suspected outlet obstruction s/p EGD on 05/07/[address] Edouard who noted pyloric ulceration with severe stenosis. Patient reports having an episode of upper abdominal pain few years ago when she took some medication with improvement of the symptoms and did not seek medical evaluation. The current symptoms started for few weeks, where she was having fullness sensation, upper abdominal discomfort which progressed to severe nausea and vomiting. Patient also could not tolerate any food and so was avoiding food and lost atleast 10-15 pounds weight over the last few weeks. Patient also reports chronic constipation and no prior Colonoscopy.. Pertinent negative GI symptoms: Patient denies fever, sick contacts, recent travel, loss of appetite, early satiety or unintentional weight loss. No history of hematemesis, melena or hematochezia. Patient reports regular bowel movements. Review of Systems: GI: as stated above CVS: No chest pain, No palpitations, No leg swelling. RS: No Shortness of breath, No Wheezing, no cough PLAYBACK OPERATOR: No dizziness, No motor weakness, No sensory problems Hematology: No bruising, No gum bleeding, Musculoskeletal: No joint pain, ambulating well. Skin: No rash : No hematuria, No burning sensation of the urine ENT: No ear discharge/ pain, No dysphagia. Eyes: No photophobia. Jaundice Home medications: reviewed. Antithrombotic agents - None Medical h/o: As above. Surgical h/o: None on abdomen. Social h/o: Alcohol: Denies , smoking: Active smoker, trying to quit. IVDA/ drugs: denies. Family h/o of GI cancers - None Prior Endoscopies: as per HPI. No prior colonoscopy. Prior GI evaluations: None. Exam: Vitals: reviewed General: Alert and oriented x 3, not in distress HEENT: NO pallor, no icterus. Normal oropharynx, NO cervical lymph nodes. Chest: symmetric with bilateral clear air entry, CVS: S1, S2 heard, normal, no murmurs . Abdomen: non-distended, no surgical scars, soft, non-tender, no palpable masses, normal bowel sounds heard. Rectal exam: Patient refused / Deferred at this time in view of scheduled colonoscopy. Extremities: no pedal edema, pulses palpable. PLAYBACK OPERATOR: no focal motor or sensory deficits. Moves all extremities Skin: no rash. Labs: reviewed. Imaging: reviewed. Impression: - Nausea, vomiting, unable to tolerate oral diet and unintentional weight loss, with imaging tests showing Gastric outlet obstruction with thickening involving duodenum and prior EGD - showed severe stricture in gastric pylorus and superficial ulcer -- DDx-- PUD with gastric outlet near complete obstruction vs rule out malignancy. Recommendations: - Patient educated about the test results, possible differential diagnoses and All questions answered. - NPO - Continue TPN for now. - IV pantoprazole 40 mg twice daily for now and when tolerating oral liquids can be switched to pantoprazole 40 mg twice daily. - Recommend sucralfate liquid 1gm 3 times daily when tolerating liquid diet. - Will schedule for EGD with biopsy and possible dilation. - The procedure, indications, risks (bleeding, perforation, infection, hypotension, respiratory depression, allergy, need for endotracheal intubation, surgery, colostomy, cardiac arrest, even ), benefits, limitations (e.g., missing a lesion), and all other alternatives (including no intervention) were explained to the patient who understood and agreed for the procedure. - Follow operative note for post procedure recommendations. Plan of care discussed with patient and primary team. Patient verbalized understanding and agreed with the plan. Vital Signs/I&O Vital Signs Date Time Temp Pulse Resp B/P (MAP) Pulse Ox O2 Delivery O2 Flow Rate FiO2 05/12/20 10:00 97.6 86 18 125/83 (97) 99 Room Air I&O- Last 24 Hours up to 6 AM 05/12/20 06:00 Intake Total 2500 ml Output Total 275 ml Balance 2225 ml Laboratory Data Labs 24H Laboratory Tests 2 05/12/20 05:40: Immature Granulocyte % (Auto) 0.5, Neutrophils (%) (Auto) 58.5, Lymphocytes (%) (Auto) 28.6, Monocytes (%) (Auto) 6.2H, Eosinophils (%) (Auto) 5.7H, Basophils (%) (Auto) 0.5, Neutrophils # (Auto) 2.3, Lymphocytes # (Auto) 1.1L, Monocytes # (Auto) 0.2, Eosinophils # (Auto) 0.2, Basophils # (Auto) 0.0, Nucleated Red Blood Cells % (auto) 0.0, Anion Gap 4L, Glomerular Filtration Rate > 60.0, Calcium Level 8.6, Total Bilirubin 0.2, Aspartate Amino Transf (AST/SGOT) 52H, Alanine Aminotransferase (ALT/SGPT) 70, Alkaline Phosphatase 43L, Total Protein 7.3, Albumin 3.1L, Albumin/Globulin Ratio 0.7L CBC/BMP Laboratory Tests 05/12/20 05:40 Allergies Coded Allergies: No Known Allergies (Unverified , 05/05/20) Home Medications Scheduled PRN Acetaminophen (Acetaminophen) 500 Mg Tablet, 1,000 MG PO Q6H PRN for PAIN, (Reported) KATHRINE JEROME MD May 12, 2020 14:09
[2020-05-12] MEDS ORDERED: LIDOCAINE 2% 100MG/5ML SDV (FOR ANES.) As Ordered ONE (15:13)
[2020-05-12] MEDS ORDERED: SUCCINYLCHOLINE 100 MG/5 ML SYRINGE (J0330) As Ordered ONE (15:13)
[2020-05-12] MEDS ORDERED: propofoL 200 MG/20 ML VIAL As Ordered ONE (15:13)
[2020-05-12] MEDS ORDERED: fentaNYL 100 MCG/2 ML INJECTION (J3010) As Ordered ONE ×2 (15:13→16:14)
[2020-05-12] MEDS ORDERED: ROCURONIUM BROMIDE 50 MG/5 ML VIAL As Ordered ONE (15:13)
[2020-05-12] MEDS ORDERED: dexameTHASONE 4 MG/ML 1ML VIAL (J1100 PER 1MG) As Ordered ONE (15:13)
[2020-05-12] MEDS ORDERED: MIDAZOLAM INJ 2MG/2ML VIAL (J2250 PER 1MG) As Ordered ONE (15:13)
[2020-05-12] MEDS ORDERED: ONDANSETRON 4MG/2ML VIAL As Ordered ONE (15:13)
[2020-05-12] MEDS ORDERED: ONDANSETRON 4MG/2ML VIAL IV PRN (16:15)
[2020-05-12] MEDS ORDERED: fentaNYL 100 MCG/2 ML INJECTION (J3010) IV PRN (16:15)
[2020-05-12] MEDS ORDERED: LR 1,000 ML IV SCH (16:15)
[2020-05-12 17:02] VITALS: BP 104/65
--- NOTE | 2020-05-12 17:17 | ROOR ---
Patient Name: Dustin Alfaro Procedure Date: 05/12/2020 12:11 PM Date of : 1970 Age: 49 Gender: Female Note Status: Finalized Procedure: Upper GI endoscopy Indications: Persistent vomiting of unknown cause, Endoscopy to confirm pyloric obstruction that was demonstrated on previous imaging study, Endoscopy to confirm duodenal obstruction that was demonstrated on previous imaging study Providers: Jayy Esparza MD Referring MD: Milad Edouard MD Requesting Provider: Medicines: General Anesthesia Complications: No immediate complications. Procedure: Pre-Anesthesia Assessment: - Prior to the procedure, a History and Physical was performed, and patient medications and allergies were reviewed. The patient is competent. The risks and benefits of the procedure and the sedation options and risks were discussed with the patient. All questions were answered and informed consent was obtained. Patient identification and proposed procedure were verified by the physician, the nurse and the anesthesiologist in the procedure room. Mental Status Examination: alert and oriented. Airway Examination: normal oropharyngeal airway and neck mobility. Respiratory Examination: clear to auscultation. CV Examination: normal. Prophylactic Antibiotics: The patient does not require prophylactic antibiotics. Prior Anticoagulants: The patient has taken no previous anticoagulant or antiplatelet agents. ASA Grade Assessment: II - A patient with mild systemic disease. After reviewing the risks and benefits, the patient was deemed in satisfactory condition to undergo the procedure. The anesthesia plan was to use general anesthesia. Immediately prior to administration of medications, the patient was re-assessed for adequacy to receive sedatives. The heart rate, respiratory rate, oxygen saturations, blood pressure, adequacy of pulmonary ventilation, and response to care were monitored throughout the procedure. The physical status of the patient was re-assessed after the procedure. The Endoscope was introduced through the mouth, and advanced to the duodenal bulb. The upper GI endoscopy was accomplished without difficulty. The patient tolerated the procedure well. Findings: The examined esophagus was normal. A 10 mm non-bleeding diverticulum was found at the pylorus. One non-obstructing non-bleeding cratered gastric ulcer of moderate severity with a clean ulcer base (Allan Class III) was found at the pylorus. The lesion was 10 mm in largest dimension. There is no evidence of perforation. Biopsies were taken with a cold forceps for histology. One completely obstructing non-bleeding cratered duodenal ulcer was found in the first portion of the duodenum and in the second portion of the duodenum. The lesion was 15 mm in largest dimension. There is no evidence of perforation. Biopsies were taken with a cold forceps in the gastric antrum for Helicobacter pylori testing. Impression: - Normal esophagus. - Gastric diverticulum. - Non-obstructing non-bleeding gastric ulcer with a clean ulcer base (Allan Class III). There is no evidence of perforation. Biopsied. - Completely obstructing non-bleeding duodenal ulcer. There is no evidence of perforation. - Biopsies were taken with a cold forceps for Helicobacter pylori testing. Recommendation: - Patient has a contact number available for emergencies. The signs and symptoms of potential delayed complications were discussed with the patient. Return to normal activities tomorrow. Written discharge instructions were provided to the patient. - Return patient to [facility] for ongoing care. - NPO. - Continue parenteral nutrition for now. - Use Protonix (pantoprazole) 40 mg IV BID. - Observe patient's clinical course. - Await pathology results. - The findings and recommendations were discussed with the surgeon. - Further management based on clinical course and surgical management if no response. - Telephone GI clinic for pathology results in 1 week. - Return to primary care physician. Jayy Esparza MD Jayy Esparza MD 05/12/2020 5:17:29 PM Electronically signed by Jayy Esparza MD Number of Addenda: 0 Note Initiated On: 05/12/2020 12:11 PM Estimated Blood Loss: Estimated blood loss was minimal.
[2020-05-12 18:02] VITALS: BP 105/67
[2020-05-12 22:00] VITALS: BP 105/71
[2020-05-12] MEDS: D5W/LR 1,000 ML IV SCH (22:10)
[2020-05-13 02:00] VITALS: BP 102/80
[2020-05-13] MEDS: SODIUM CHLORIDE 0.9% INJ 10 ML SYR IV SCH ×2 (05:30→18:39)
[2020-05-13 06:00] VITALS: BP 102/60
[2020-05-13] MEDS: PANTOPRAZOLE 40MG VIAL (C9113 PER 1) IV SCH (09:16)
[2020-05-13] MEDS: SODIUM CHLORIDE 0.9% INJ 10 ML SYR IV PRN (09:19)
[2020-05-13 10:00] VITALS: BP 120/83
[2020-05-13] MEDS: D5W/LR 1,000 ML IV SCH (11:04)
[2020-05-13 14:00] VITALS: BP 104/66
--- NOTE | 2020-05-13 16:50 | IPN ---
DATE: 05/12/2020 HISTORY: The patient underwent repeat endoscopy today by Dr. Esparza. He was able to get the scope through the pylorus and see that there was a large ulcer in the duodenal bulb. He had also noticed a distortion in the prepyloric area with an ulceration in that region. Dr. Esparza and I spoke following the procedure. He has recommended that we continue her on total parenteral nutrition, though we could allow her some clear liquids. He suggest discharge home on total parenteral nutrition (TPN) for several weeks and he would followup in the office to consider repeat endoscopy or possibly imaging studies to assess the progress of her healing. Vital signs show that she has been afebrile over the past 24 hours. Her pulse is in the 70s and 80s and her blood pressure is normal. Intake and output shows that on the she had 2500 in and a small amount of urine recorded though she has been getting up and going to the bathroom. PHYSICAL EXAMINATION: The patient is pleasant and alert. She denies any abdominal pain or nausea. Abdomen is flat, soft and nontender. Laboratory studies today showed a white count of 4, hemoglobin 12, hematocrit 38, and a platelet count of 108. Differential count was normal. Her chemistry profile showed normal electrolytes with the exception of a minimal elevation of the chloride to 109. Her BUN is 25 with a creatinine 0.56 and her glucose is 111. Total protein is 7.3 with an albumin of 3.1. IMPRESSION: The patient tolerated her upper endoscopy well. He was able to see that she has a large ulcer in the duodenal bulb, which no doubt is accounting for her obstruction. PLAN: I will start her on some clear liquids. We will make plans for home TPN for several weeks to allow further healing of her ulcer. Hopefully, she will resolve the obstruction sufficiently as the inflammation resolves to resume a normal diet without any further intervention.
[2020-05-13 18:00] VITALS: BP 110/68
[2020-05-13] MEDS ORDERED: FAT EMULSION IV 20% 500 ML IV SCH ×2 (18:00)
[2020-05-13] MEDS ORDERED: AMINO AC/ELECTROLYTE/DEX/CALC 2,000 ML IV SCH ×2 (18:00)
[2020-05-13] MEDS: PANTOPRAZOLE 40MG TAB (PROTONIX) PO SCH (20:02)
[2020-05-13] MEDS: FAMOTIDINE 20 MG TAB PO SCH (20:02)
[2020-05-13 22:00] VITALS: BP 135/83
[2020-05-14 02:00] VITALS: BP 107/75
[2020-05-14] MEDS: SODIUM CHLORIDE 0.9% INJ 10 ML SYR IV SCH ×2 (05:20→18:46)
[2020-05-14 06:00] VITALS: BP 117/71
[2020-05-14 06:51] LABS: HEMATOCRIT 34.1 % (36.0-47.0); HEMOGLOBIN 11.2 g/dl (12.0-15.5); MEAN CORPUSCULAR HEMOGLOBIN 30.3 pg (27.0-33.0); MEAN CORPUSCULAR HGB CONC 32.8 g/dl (32.0-36.5); MEAN CORPUSCULAR VOLUME 92.2 fl (80.0-96.0); PLATELET COUNT, AUTOMATED 173 10^3/uL (150-450); WHITE BLOOD COUNT 3.2 10^3/uL (4.0-10.0)
[2020-05-14 07:21] LABS: BLOOD UREA NITROGEN 13 MG/DL (7-18); CALCIUM LEVEL 8.3 MG/DL (8.5-10.1); CARBON DIOXIDE LEVEL 30 MEQ/L (21-32); CHLORIDE LEVEL 109 MEQ/L (98-107); CREATININE FOR GFR 0.57 MG/DL (0.55-1.30); GLOMERULAR FILTRATION RATE > 60.0 (>51); GLUCOSE, FASTING 100 MG/DL (70-100); MAGNESIUM LEVEL 2.1 MG/DL (1.8-2.4); PHOSPHORUS LEVEL 4.5 MG/DL (2.5-4.9); POTASSIUM SERUM 3.8 MEQ/L (3.5-5.1); SODIUM LEVEL 144 MEQ/L (136-145); TRIGLYCERIDES LEVEL 108 MG/DL (<150)
[2020-05-14 08:00] VITALS: BP 120/66
[2020-05-14] MEDS: PANTOPRAZOLE 40MG TAB (PROTONIX) PO SCH ×2 (09:11→20:57)
--- NOTE | 2020-05-14 11:06 | IPN ---
DATE: 05/13/2020 HISTORY: The patient has been doing well since her second esophagogastroduodenoscopy (EGD) that documented her large duodenal bulb ulcer. She continues to deny any abdominal pain. She has been taking a few ice chips and sips of water. She reports that she is passing flatus and has had a couple of small loose bowel movements and is voiding well. Vital signs show that she has been afebrile. Her pulse is in the 70s and 80s and her blood pressure is good. Intake and output show that yesterday she had 2200 in with incomplete records on output. PHYSICAL EXAMINATION: She is alert and oriented. Heart and lung exam is unremarkable. The abdomen is soft and nontender. The patient has no new labs today. IMPRESSION: The patient is doing very well and has tolerated some sips of water and ice chips. PLAN: The patient will be advanced to unlimited clear liquids. We will continue her total parenteral nutrition (TPN) to ensure that she has adequate caloric intake. Dr. Esparza had recommended discharge home on TPN and we are working toward this. It is anticipated that she will have a training session on , 05/14/2020, and be discharged 05/15/2020. She will remain on Protonix twice daily and Pepcid once daily.
[2020-05-14 14:00] VITALS: BP 119/66
[2020-05-14 18:00] VITALS: BP 108/72
[2020-05-14] MEDS ORDERED: FAT EMULSION IV 20% 500 ML IV SCH (18:00)
[2020-05-14] MEDS ORDERED: AMINO AC/ELECTROLYTE/DEX/CALC 2,000 ML IV SCH (18:00)
[2020-05-14] MEDS: FAMOTIDINE 20 MG TAB PO SCH (20:57)
[2020-05-14 22:00] VITALS: BP 121/63
[2020-05-15 02:00] VITALS: BP 110/60
[2020-05-15 06:00] VITALS: BP 118/77
[2020-05-15] MEDS: SODIUM CHLORIDE 0.9% INJ 10 ML SYR IV SCH (06:15)
[2020-05-15] MEDS: PANTOPRAZOLE 40MG TAB (PROTONIX) PO SCH (08:45)
[2020-05-15 10:00] VITALS: BP 102/69
--- NOTE | 2020-05-15 10:02 | IPN ---
DATE: 05/14/2020 HISTORY: The patient has been tolerating clear liquids over the last 24 hours. She remains on total parenteral nutrition (TPN) to ensure her adequate caloric needs. She denies any pain, nausea or vomiting. Vital signs show that she has been afebrile with a pulse in the 70s to low 80s and a good blood pressure. Intake and output show that yesterday she had a 2990 in with 1600 recorded out but she has been voiding in the toilet. PHYSICAL EXAMINATION: The patient is alert and comfortable. Heart exam shows she is not tachycardiac. The abdomen is thin, flat and soft. Laboratory studies today show white count of 3, hemoglobin 11, hematocrit 34, and a platelet count of 173,000. Her chemistry profile shows sodium of 144, potassium 3.8, chloride 109, CO2 of 30, BUN of 13, creatinine 0.6, and a glucose of 100. Phosphorus and magnesium are normal. Pathology from her endoscopy on 05/12/2020 reveals biopsies of the pyloric ulcer showed inflammation only without evidence of malignancy. The biopsies of the stomach showed some chronic gastritis without evidence of Helicobacter (H) pylori. IMPRESSION: The patient is doing very well with her gastric outlet obstruction. She is tolerating clear liquids without any nausea or vomiting. She has no pain. Her biopsies of the ulcer returned as negative for malignancy. PLAN: Plan is in place for the patient to be discharged home on 05/15/2020. She will be discharged home with home TPN to ensure her adequate caloric needs. Her gastric outlet obstruction was quite tight and Dr. Esparza of gastroenterology recommended approximately 3 weeks of TPN with clear liquids only. He can advance her diet as he sees fit when she follows up in the office with him.
[2020-05-15] MEDS ORDERED: FAMO20TA PO (11:10)
[2020-05-15] MEDS ORDERED: PANT40TA3 PO (11:10)
[2020-05-15] MEDS: SODIUM CHLORIDE 0.9% INJ 10 ML SYR IV PRN (11:53)
== END 2020-05-15 12:01 | disposition home health service (06) | DRG 382 ==
LOC: M ED 08:54 → M ED INP 16:09 → ENRESERV 19:14 → M MSPAV 20:14
PROVIDERS: ADMIT Surgery; ATTEND Surgery
PROC: 02HV33Z Insertion of Infusion Device into Superior Vena Cava, Percutaneous Approach (ICD-10-PCS; 2020-05-07)
PROC: 3E0436Z Introduction of Nutritional Substance into Central Vein, Percutaneous Approach (ICD-10-PCS; 2020-05-07)
PROC: 0DJ08ZZ Inspection of Upper Intestinal Tract, Via Natural or Artificial Opening Endoscopic (ICD-10-PCS; principal; 2020-05-07 10:30)
PROC: 0DB78ZX Excision of Stomach, Pylorus, Via Natural or Artificial Opening Endoscopic, Diagnostic (ICD-10-PCS; 2020-05-12)
PROC: 0DB68ZX Excision of Stomach, Via Natural or Artificial Opening Endoscopic, Diagnostic (ICD-10-PCS; 2020-05-12)
DX: K31.1 Adult hypertrophic pyloric stenosis (principal); R63.4 Abnormal weight loss; K25.9 Gastric ulcer, unspecified as acute or chronic, without hemorrhage or perforation; K26.9 Duodenal ulcer, unspecified as acute or chronic, without hemorrhage or perforation; K31.4 Gastric diverticulum; Z87.891 Personal history of nicotine dependence; Z11.59 Encounter for screening for other viral diseases

== ENCOUNTER → 2020-06-08 | Outpatient (CLI) | payer OTHER ==
[~2020-06-08] MED LIST: ACET-840 PO; FAMO20TA PO; METO5TAB2; PANT40TA29 PO; PROM12.56; SUCR1ORA2
== END ==
LOC: M LABSMTC 14:00
PROVIDERS: ATTEND Anesthesiology
DX: Z01.818 Encounter for other preprocedural examination (principal); Z20.828 Contact with and (suspected) exposure to other viral communicable diseases
CPT/HCPCS: C9803; U0002

== ENCOUNTER 2020-06-12 12:26 | Day surgery (SDC) | payer OTHER ==
[2020-06-12] MEDS ORDERED: propofoL 200 MG/20 ML VIAL As Ordered ONE (13:26)
--- NOTE | 2020-07-08 11:28 | ROOR ---
Patient Name: Dustin Alfaro Procedure Date: 06/12/2020 1:01 PM Date of : 1970 Age: 49 Room: [facility] Gender: Female Note Status: Call Center Director Override Procedure: Upper GI endoscopy Indications: For therapy of duodenal stenosis, Suspected acute gastric ulcer, Follow-up of acute duodenal ulcer Providers: Jayy Esparza MD Referring MD: RUI LAUGHLIN MD, Milad Edouard MD Requesting Provider: Medicines: Monitored Anesthesia Care Complications: No immediate complications. Procedure: Pre-Anesthesia Assessment: - Prior to the procedure, a History and Physical was performed, and patient medications and allergies were reviewed. The patient is competent. The risks and benefits of the procedure and the sedation options and risks were discussed with the patient. All questions were answered and informed consent was obtained. Patient identification and proposed procedure were verified by the physician, the nurse and the anesthesiologist in the procedure room. Mental Status Examination: alert and oriented. Airway Examination: normal oropharyngeal airway and neck mobility. Respiratory Examination: clear to auscultation. CV Examination: normal. Prophylactic Antibiotics: The patient does not require prophylactic antibiotics. Prior Anticoagulants: The patient has taken no previous anticoagulant or antiplatelet agents. ASA Grade Assessment: II - A patient with mild systemic disease. After reviewing the risks and benefits, the patient was deemed in satisfactory condition to undergo the procedure. The anesthesia plan was to use monitored anesthesia care (MAC). Immediately prior to administration of medications, the patient was re-assessed for adequacy to receive sedatives. The heart rate, respiratory rate, oxygen saturations, blood pressure, adequacy of pulmonary ventilation, and response to care were monitored throughout the procedure. The physical status of the patient was re-assessed after the procedure. The Endoscope was introduced through the mouth, and advanced to the second part of duodenum. The upper GI endoscopy was accomplished without difficulty. The patient tolerated the procedure well. Findings: The examined esophagus was normal. A deformity was found at the pylorus. An acquired benign-appearing, intrinsic severe stenosis was found in the first portion of the duodenum and was traversed after downsizing the scope to ultrathin scope. Biopsies were taken with a cold forceps for histology. Verification of patient identification for the specimen was done by the physician and nurse using the patient's name, date and medical record number. Estimated blood loss was minimal. Impression: - Normal esophagus. - Acquired deformity in the pylorus. - Acquired duodenal stenosis. Biopsied. Recommendation: - Patient has a contact number available for emergencies. The signs and symptoms of potential delayed complications were discussed with the patient. Return to normal activities tomorrow. Written discharge instructions were provided to the patient. - Full liquid diet and soft diet. - Continue with TPN for now. - Continue present medications. - Use Protonix (pantoprazole) 40 mg PO twice daily - to be taken in morning (1/2 hour before breakfast) and at bedtime ( atleast 3 hours after last meal) for 3 months. - Use sucralfate suspension 1 gram PO QID for 3 months. - Do an upper GI series in 1 week. - Return to GI clinic in 2 weeks. - Telephone GI clinic to schedule appointment. Please call GI clinic @ [phone] for apppointment date and time. - Return to primary care physician. Jayy Esparza MD 06/12/2020 2:03:36 PM Number of Addenda: 0 Note Initiated On: 06/12/2020 1:01 PM Estimated Blood Loss: Estimated blood loss was minimal.
== END 2020-06-12 14:35 | disposition home or self-care (01) ==
LOC: M OPP 12:26
PROVIDERS: ATTEND Internal Medicine Gastroenterology
DX: K31.89 Other diseases of stomach and duodenum (principal); K31.5 Obstruction of duodenum; K26.3 Acute duodenal ulcer without hemorrhage or perforation

== ENCOUNTER → 2020-06-26 | Outpatient (CLI) | payer OTHER ==
[~2020-06-26] MED LIST changes: +E-Z-GAS II EFFERVESCENT PACKET (SODIUM BICARB./CITRIC ACID/SIMETHICONE) As Ordered ONE; +E-Z-HD 98% w/w 340GM SUSP BTL As Ordered ONE; +E-Z-PAQUE 96% w/w SUSP 176GM BTL As Ordered ONE
--- NOTE | 2020-07-27 10:48 | REP ---
UPPER GI AIR CONTRAST The procedure was performed under the direct supervision of Dr. June. The images were reviewed with Dr. June. The inside account executive film shows no organomegaly or pathological masses. The intestinal gas pattern is nonspecific. Liquid barium and gas-producing granules were given in the erect position, as well as liquid barium in the prone oblique positions in order to perform a double-contrast upper GI examination. The oral and pharyngeal stages of deglutition are unremarkable. Esophageal transport is prompt and efficient and there is no esophagitis, stricture, mucosal ring, or hiatal hernia. Gastroesophageal reflux is not demonstrated on this examination. The fundus and body of the stomach are unremarkable. The rugal folds are smooth and regular. In the distal portion of the lesser curvature there is an outpouching, which may represent an ulcer niche. This measures 2 cm. In the postbulbar duodenum there is peptic scarring. The visualized portion of the proximal small bowel appears normal in course and caliber. IMPRESSION: * In the distal portion of the lesser curvature of the stomach, there is an ulcer niche. This measures 2 cm in diameter. * In the postbulbar duodenum, there is peptic scarring. 1.8 minutes of fluoroscopy time was utilized for this procedure. MTDD
== END ==
LOC: M RAD 08:49
PROVIDERS: ATTEND Internal Medicine Gastroenterology
DX: K31.5 Obstruction of duodenum (principal)

== ENCOUNTER → 2020-08-15 | Outpatient (CLI) | payer OTHER ==
[~2020-08-15] MED LIST changes: -E-Z-GAS II EFFERVESCENT PACKET (SODIUM BICARB./CITRIC ACID/SIMETHICONE) As Ordered ONE; -E-Z-HD 98% w/w 340GM SUSP BTL As Ordered ONE; -E-Z-PAQUE 96% w/w SUSP 176GM BTL As Ordered ONE
== END ==
LOC: M LABSMTC 08:55
PROVIDERS: ATTEND Anesthesiology
DX: Z01.812 Encounter for preprocedural laboratory examination (principal); Z20.828 Contact with and (suspected) exposure to other viral communicable diseases
CPT/HCPCS: C9803; U0003

== ENCOUNTER 2020-08-20 12:03 | Day surgery (SDC) | payer OTHER ==
[~2020-08-20] VITALS: Ht 154.9 cm; Wt 45.3 kg
[~2020-08-20 12:03] MED LIST changes: +NS 1,000 ML IV ONE
[2020-08-20] MEDS ORDERED: propofoL 200 MG/20 ML VIAL As Ordered ONE (13:37)
[2020-08-20] MEDS ORDERED: LIDOCAINE 2% 100MG/5ML SDV (FOR ANES.) As Ordered ONE (13:37)
[2020-08-20] MEDS ORDERED: fentaNYL 100 MCG/2 ML INJECTION (J3010) As Ordered ONE (13:37)
--- NOTE | 2020-08-20 13:49 | ROOR ---
Patient Name: Dustin Alfaro Procedure Date: 08/20/2020 1:16 PM Date of : 1970 Age: 49 Room: [facility] Gender: Female Note Status: Finalized Procedure: Upper GI endoscopy Indications: Follow-up of chronic duodenal ulcer with obstruction Providers: Milad Edouard MD Referring MD: RUI LAUGHLIN MD Requesting Provider: Medicines: Monitored Anesthesia Care Complications: No immediate complications. Procedure: Pre-Anesthesia Assessment: - Prior to the procedure, a History and Physical was performed, and patient medications and allergies were reviewed. The patient is competent. The risks and benefits of the procedure and the sedation options and risks were discussed with the patient. All questions were answered and informed consent was obtained. Patient identification and proposed procedure were verified by the physician, the nurse and the asset analyst in the procedure room. Mental Status Examination: alert and oriented. Airway Examination: normal oropharyngeal airway and neck mobility. Prophylactic Antibiotics: The patient does not require prophylactic antibiotics. Prior Anticoagulants: The patient has taken no previous anticoagulant or antiplatelet agents. ASA Grade Assessment: II - A patient with mild systemic disease. After reviewing the risks and benefits, the patient was deemed in satisfactory condition to undergo the procedure. The anesthesia plan was to use monitored anesthesia care (MAC). Immediately prior to administration of medications, the patient was re-assessed for adequacy to receive sedatives. The heart rate, respiratory rate, oxygen saturations, blood pressure, adequacy of pulmonary ventilation, and response to care were monitored throughout the procedure. The physical status of the patient was re-assessed after the procedure. The Endoscope was introduced through the mouth, and advanced to the pylorus. The upper GI endoscopy was accomplished without difficulty. The patient tolerated the procedure well. Findings: The examined esophagus was normal. A large amount of food (residue) was found in the gastric fundus and on the greater curvature of the stomach. A benign-appearing, intrinsic severe stenosis was found at the pylorus. This was non-traversed. Impression: - Normal esophagus. - A large amount of food (residue) in the stomach. - Gastric stenosis was found at the pylorus. - No specimens collected. Recommendation: - Discharge patient to home. - Resume previous diet. - Return to my office in 1 week. Milad Edouard MD Milad Edouard MD 08/20/2020 1:48:49 PM Electronically signed by Milad Edouard MD Number of Addenda: 0 Note Initiated On: 08/20/2020 1:16 PM Estimated Blood Loss: Estimated blood loss: none.
[2020-08-20 14:00] VITALS: BP 114/66
== END 2020-08-20 14:11 | disposition home or self-care (01) ==
LOC: M OPP 12:03
PROVIDERS: ATTEND Surgery
DX: K26.9 Duodenal ulcer, unspecified as acute or chronic, without hemorrhage or perforation (principal); K31.1 Adult hypertrophic pyloric stenosis
CPT/HCPCS: 43235; J3010

== ENCOUNTER → 2020-10-15 | Outpatient (CLI) | payer OTHER ==
[~2020-10-15] MED LIST changes: +D31000TA2 PO; -NS 1,000 ML IV ONE; +VITA-243 PO
== END ==
LOC: M LABSMTC 09:46
PROVIDERS: ATTEND Anesthesiology
DX: Z01.812 Encounter for preprocedural laboratory examination (principal); Z20.828 Contact with and (suspected) exposure to other viral communicable diseases

== ENCOUNTER 2020-10-20 06:00 | Inpatient (IN) | payer OTHER ==
[~2020-10-20] VITALS: Ht 154.9 cm; Wt 44.9 kg
[2020-10-20] VITALS (7 sets, daily range): BP systolic 117–142; BP diastolic 70–84
[~2020-10-20 06:00] MED LIST changes: +UNRESOLVED CLARIFICATION ENTRY XX SCH
[2020-10-20] MEDS ORDERED: cefoTEtan INJ 2GM VIAL (S0074 PER 500MG) As Ordered ONE (06:54)
[2020-10-20] MEDS ORDERED: LR 1,000 ML IV ONE (07:00)
[2020-10-20] MEDS ORDERED: BUPIVACAINE HCL 0.25% 30ML VIAL As Ordered ONE (07:19)
[2020-10-20] MEDS ORDERED: dexameTHASONE 4 MG/ML 1ML VIAL (J1100 PER 1MG) As Ordered ONE (07:22)
[2020-10-20] MEDS ORDERED: LIDOCAINE 2% 100MG/5ML SDV (FOR ANES.) As Ordered ONE (07:22)
[2020-10-20] MEDS ORDERED: propofoL 200 MG/20 ML VIAL As Ordered ONE (07:22)
[2020-10-20] MEDS ORDERED: ONDANSETRON 4MG/2ML VIAL As Ordered ONE (07:22)
[2020-10-20] MEDS ORDERED: ACETAMINOPHEN 1000MG 100ML IV BTL (OFIRMEV) (J0131 PER 10MG) As Ordered ONE (07:22)
[2020-10-20] MEDS ORDERED: SUGAMMADEX SODIUM 500 MG/5 ML VIAL (BRIDION) As Ordered ONE (07:22)
[2020-10-20] MEDS ORDERED: KETOROLAC 60MG 2ML VIAL As Ordered ONE (07:22)
[2020-10-20] MEDS ORDERED: ROCURONIUM BROMIDE 50 MG/5 ML VIAL As Ordered ONE (07:22)
[2020-10-20] MEDS ORDERED: fentaNYL 100 MCG/2 ML INJECTION (J3010) As Ordered ONE ×2 (07:23→13:04)
[2020-10-20] MEDS ORDERED: MIDAZOLAM INJ 2MG/2ML VIAL (J2250 PER 1MG) As Ordered ONE (07:23)
[2020-10-20] MEDS ORDERED: cefoTEtan DISODIUM 2 GM in D5W MINI-BAG PLUS 50 ML IV ONE (07:30)
[2020-10-20] MEDS ORDERED: LR 1,000 ML IV SCH ×2 (07:30→13:15)
[2020-10-20] MEDS ORDERED: PHENYLephrine HCL 500 MCG/5 ML (100MCG/ML) SYRINGE (J2370) As Ordered ONE (09:38)
[2020-10-20] MEDS ORDERED: PHENYLEPHRINE 10MG/ML 1ML VIAL (J2370 PER 1) As Ordered ONE (09:39)
[2020-10-20] MEDS: fentaNYL 100 MCG/2 ML INJECTION (J3010) IV PRN ×4 (13:10→13:31)
[2020-10-20] MEDS ORDERED: METOCLOPRAMIDE INJ 10MG/2ML VIAL (J2765 PER 1) IV PRN (13:15)
[2020-10-20] MEDS ORDERED: MEPERIDINE INJ 25 MG/ML VIAL (J2175) IV PRN (13:15)
[2020-10-20] MEDS ORDERED: ONDANSETRON 4MG/2ML VIAL IV PRN ×2 (13:15)
[2020-10-20] MEDS ORDERED: oxyCODONE 5MG TAB PO PRN (13:15)
[2020-10-20] MEDS: MORPHINE 2 MG/ML 1ML VIAL (J2270) IV PRN ×2 (14:46→18:53)
[2020-10-20] MEDS: LR 1,000 ML IV SCH ×2 (14:48→23:34)
[2020-10-20] MEDS ORDERED: cefoTEtan DISODIUM 1 GM in D5W MINI-BAG PLUS 50 ML IV ONE (20:00)
[2020-10-21 06:00] VITALS: BP 124/72
[2020-10-21 06:18] LABS: BASO % 0.3 % (0.0-1.0); EOS % 0.4 % (0.0-3.0); HEMATOCRIT 35.5 % (36.0-47.0); HEMOGLOBIN 11.3 g/dl (12.0-15.5); LYMPH # 1.2 10^3/uL (1.5-5.0); LYMPH % 17.5 % (24.0-44.0); MEAN CORPUSCULAR HEMOGLOBIN 28.8 pg (27.0-33.0); MEAN CORPUSCULAR HGB CONC 31.8 g/dl (32.0-36.5); MEAN CORPUSCULAR VOLUME 90.6 fl (80.0-96.0); MONO # 0.4 10^3/uL (0.0-0.8); MONO % 6.2 % (0.0-5.0); NEUTROPHILS # 5.3 10^3/uL (1.5-8.5); NEUTROPHILS % 75.3 % (36.0-66.0); PLATELET COUNT, AUTOMATED 171 10^3/uL (150-450); RED BLOOD COUNT 3.92 10^6/uL (4.00-5.40)
[2020-10-21 06:49] LABS: BLOOD UREA NITROGEN 20 MG/DL (7-18); CALCIUM LEVEL 8.1 MG/DL (8.5-10.1); CARBON DIOXIDE LEVEL 28 MEQ/L (21-32); CHLORIDE LEVEL 106 MEQ/L (98-107); CREATININE FOR GFR 0.63 MG/DL (0.55-1.30); GLOMERULAR FILTRATION RATE > 60.0 (>51); GLUCOSE, FASTING 67 MG/DL (70-100); POTASSIUM SERUM 3.6 MEQ/L (3.5-5.1); SODIUM LEVEL 140 MEQ/L (136-145)
[2020-10-21] MEDS ORDERED: ISOVUE-300 61% 50ML VIAL As Ordered ONE (09:34)
[2020-10-21] MEDS: PANTOPRAZOLE 40MG VIAL (C9113 PER 1) IV SCH (09:51)
[2020-10-21] MEDS: ENOXAPARIN 40MG/0.4ML SYRINGE (J1650 PER 10MG) SC SCH (09:51)
[2020-10-21] MEDS: KETOROLAC 30 MG/ML 1ML VIAL IV PRN ×2 (09:52→19:25)
[2020-10-21] MEDS: LR 1,000 ML IV SCH (09:52)
[2020-10-21 11:05] VITALS: BP 98/66
[2020-10-21 14:00] VITALS: BP 100/6
--- NOTE | 2020-10-21 17:11 | REP ---
INDICATION: S/P pyloroplasty day 1, water soluble contrast swallow. COMPARISON: None TECHNIQUE: This procedure was performed by Nikia Ye [facility], under the direct supervision of Dr. Blount. Images were reviewed with Dr. Blount prior to dictation. Approximately 150 mL of Isovue 300 was given orally. FINDINGS: The remote broadcast engineer film shows no organomegaly or pathological masses. The intestinal gas pattern is unremarkable. This is a limited exam, patient is status post thyroplasty 1 day. Esophageal transport is prompt inefficient. There is no evidence of stricture or gastroesophageal reflux. The stomach alba are normally outlined. The rugal folds are smooth and regular. As are the duodenal alba. There is no evidence of extravasation of contrast. Contrast flows freely from the esophagus through the stomach and through the duodenal sweep. IMPRESSION: Single contrast water soluble upper GI exam, without evidence of extravasation or obstruction. 0.2 minutes of fluoroscopy time was utilized for this procedure. Some fluoroscopic images are performed with last image hold technology. These images require no additional radiation. <Electronically signed by Nikia Ye > 10/21/20 1648 <Electronically signed by Kevin Blount > 10/21/20 1702
[2020-10-21 18:00] VITALS: BP 129/82
[2020-10-21] MEDS ORDERED: NORCO, ANEXSIA 5/325MG TABLET (HYDROcodone/ACETAMINOPHEN) PO PRN (18:30)
[2020-10-21 22:00] VITALS: BP 127/72
[2020-10-22 02:00] VITALS: BP 124/73
[2020-10-22 06:00] VITALS: BP 142/87
[2020-10-22] MEDS: PANTOPRAZOLE 40MG VIAL (C9113 PER 1) IV SCH (07:54)
[2020-10-22] MEDS: ENOXAPARIN 40MG/0.4ML SYRINGE (J1650 PER 10MG) SC SCH (07:54)
[2020-10-22] MEDS: KETOROLAC 30 MG/ML 1ML VIAL IV PRN (07:55)
[2020-10-22 10:00] VITALS: BP 122/77
[2020-10-22] MEDS ORDERED: BACITRACIN OINTMENT 30GM TUBE TOP PRN (10:30)
--- NOTE | 2020-10-22 11:42 | IPN ---
PROGRESS NOTE DATE: 10/22/2020 HISTORY: Patient is now post-op day number 2 from a robotic assisted laparoscopic truncal vagotomy and pyloroplasty for gastric outlet obstruction from peptic ulcer disease. She was started on clear liquids yesterday. She has tolerated those well. PHYSICAL EXAMINATION: Vital signs show that she has been afebrile over the past 24 hours. Pulse is in the 70s and 80s, respiratory rate is normal and her blood pressure is excellent. Intake and output show that yesterday she had 2900 in, 1410 was oral, and she had a good urine output with her drain putting out 160 mL yesterday. Patient is alert and oriented and appears fairly comfortable. She does complain of some mid-abdominal discomfort. She has had no nausea or vomiting. Heart: Regular rate and rhythm. Lungs: Clear. Abdomen: Flat and thin. She has bowel sounds present. Incisions are clean and dry. Her drain has a small amount of lightly pink serosanguineous fluid. LABORATORY DATA: There are no new labs today. IMPRESSION: Patient is doing very well 2 days post-op from her vagotomy and pyloroplasty. She has tolerated liquids well. PLAN: I will advance the patient to full liquids today. I will have her drain removed. If she tolerates the full liquids I would expect she would go home tomorrow. SKYE
[2020-10-22] MEDS: BACITRACIN OINTMENT 30GM TUBE TOP SCH (11:51)
[2020-10-22 14:00] VITALS: BP 131/88
[2020-10-22] MEDS: ACETAMINOPHEN 325 MG/10.15 ML UDC PO PRN ×2 (14:23→18:41)
--- NOTE | 2020-10-22 17:47 | IPN ---
PROGRESS NOTE DATE: 10/21/2020 HISTORY: Patient is postoperative day #1 from a robotic-assisted laparoscopic truncal vagotomy and pyloroplasty. She has a single drain in place in the area of the pyloroplasty. Vital signs show that the patient has been afebrile since surgery with a maximum temperature of 99.8. Her pulse is in the 70s and 80s. Blood pressure is good. Intake and output show that yesterday she had 2300 in with only 178 recorded out. She had only 100 mL of urine output recorded, though I suspect we are under-measuring her urine output. Her drain had 28 mL recorded out yesterday. PHYSICAL EXAMINATION: Patient is lying quietly in the hospital bed. She appears somewhat uncomfortable. Heart exam shows a regular rhythm. The lungs are clear. The abdomen is flat. She does have some faint bowel sounds present. Her drain has a minimal amount of serosanguineous fluid. Her other dressings are clean and dry. The abdomen is nondistended. LABORATORY STUDIES: This morning show a white count of 7, hemoglobin of 11, hematocrit 36, and a platelet count of 171. Her chemistry profile shows normal electrolytes with a BUN of 20, creatinine 0.6, and a glucose of 67. The patient had a Gastrografin swallow this morning to confirm patency of her pyloroplasty and the absence of a leak. I reviewed these images personally, though I have not noted a dictated report at this time. Clearly she has flow of contrast through the area of the pyloroplasty, and there is no evidence of leak. IMPRESSION: Patient is doing very well postoperative day #1 from her truncal vagotomy and pyloroplasty. I will allow her to take clear liquids today and saline lock her intravenous (IV) if she tolerates these well. I will continue her drain for now. I will start her on some oral pain medications on an as-needed basis. I would expect she will be ready for discharge in the next 1-2 days. SKYE
[2020-10-22 22:00] VITALS: BP 130/86
[2020-10-23 02:00] VITALS: BP 130/82
[2020-10-23 06:00] VITALS: BP 130/83
[2020-10-23] MEDS: ENOXAPARIN 40MG/0.4ML SYRINGE (J1650 PER 10MG) SC SCH ×2 (08:19→08:22)
[2020-10-23] MEDS: PANTOPRAZOLE 40MG VIAL (C9113 PER 1) IV SCH (08:19)
[2020-10-23] MEDS: BACITRACIN OINTMENT 30GM TUBE TOP SCH (08:19)
--- NOTE | 2020-10-25 00:28 | RO ---
OPERATIVE NOTE DATE OF OPERATION: 10/20/2020 PREOPERATIVE DIAGNOSIS: Gastric outlet obstruction secondary to scarring from peptic ulcer disease. POSTOPERATIVE DIAGNOSIS: Gastric outlet obstruction secondary to scarring from peptic ulcer disease. PROCEDURE PERFORMED: Robotic assisted laparoscopic truncal vagotomy with Martin type pyloroplasty. SURGEON: Milad Edouard MD ANESTHESIA: General. INDICATIONS FOR THE PROCEDURE: The patient is a 49-year-old woman who has a history of peptic ulcer disease years ago. She had presented to the hospital this past summer with signs and symptoms of a gastric outlet obstruction. Endoscopy revealed a markedly narrowed pylorus with a large ulcer in the duodenum as well. She had slight improvement with treatment of her acute ulcers with proton pump inhibitors. The cutter machine did not feel comfortable attempting dilation of her strictured area. Follow up endoscopy showed persistent severe narrowing at the level of the pylorus. She remained quite symptomatic and she is now for a vagotomy and pyloroplasty. OPERATIVE PROCEDURE: The patient was brought to the operating room and placed on the tablet in a supine position. She was placed under general endotracheal anesthesia. A Fair catheter was placed. An orogastric tube was inserted by anesthesia. The patient's abdomen was prepped and draped in a sterile fashion. 25% Marcaine was infiltrated at each of the trocar sites as needed. Initial entry was in the left upper quadrant slightly above the level of the umbilicus and just to the left of the midline. A shortened incision was made and the Veress needle was inserted; and after positive hanging drop test, an 8 mm port was placed over a 5 mm camera and advanced through the abdominal wall without difficulty. Initial examination showed no evidence of any significant adhesions within in the abdomen. Three additional 8 mm ports were placed, two on either side of the midline and slightly above the level of the initial trocar and spaced appropriately and the 4th port was in the far lateral left side of the abdomen. A 5 mm port was placed in the right upper quadrant far laterally for placement of a liver retractor. Using a hand laparoscope for guidance, the malleable liver retractor was inserted through the right upper quadrant 5 mm port and formed into the retractor position. This was used to elevate the left lobe of the liver. The upright for the Bookwalter retractor was attached to the side of the table and the grasping arm was attached to the liver retractor fixing this nicely in place. The patient cart of the da Yamini XI robot was then brought into position. The endoscope arm was attached to the initial trocar and the endoscope was inserted. Targeting took place in the area of the esophageal hiatus. The additional arms were then docked. I would note that prior to docking the endoscope port, the patient was tilted to approximately a 15 degree reversed Trendelenburg position. A grasping retractor was inserted in the far left trocar site. A fenestrated bipolar in the right upper quadrant port site and the SynchroSeal device was inserted in the medial left upper quadrant port site. I then moved to the control console to begin the procedure. The thin lesser omentum was identified between the liver and the lesser curve of the stomach and this was opened. The dissection was carried superiorly. Initially what appeared to be the hepatic branch of the anterior vagus nerve was preserved. The dissection was continued above this level and the anterior wall of the esophagus was identified. The border of the right kashif of the diaphragm was exposed. Dissection was carried up freeing the esophagus along the right side. The stomach was retracted slightly to the right and the esophagus was then dissected free on the left aspect to expose the left kashif. A portion of Miah drain was placed posterior to the esophagus to be used as a traction point. Further inspection was then performed. It was identified that the anterior vagus appeared to have been sacrificed during the course of exposing the anterior portion of the esophagus. The muscle fibers were noted and were intact, but the nerve appeared to have been transected. I elected to proceed with a truncal vagotomy. A portion of this tissue that represented the anterior vagus was excised. The posterior vagus nerve was identified on the posterior medial aspect of the esophagus and a segment was excised. These two portions of tissue were sent labeled anterior and posterior vagus nerves. There did not appear to be any significant branches remaining, either anteriorly or posteriorly on a careful inspection. Minimal blood loss occurred during this portion of the procedure. I then turned my attention to the pyloroplasty. There was some significant scarring in the region of the duodenal bulb. There were some adhesions to the overlying fundus of the gallbladder. These adhesions were lysed. Initially, I proceeded with the liver retractor in place; but after proceeding with some dissection, I elected to remove the liver retractor, as this was more in the way than the left lobe of the liver would be. The stomach was quite thickened in its wall because of her longstanding obstruction. The proximal second portion of he duodenum and the distal duodenal bulb appeared to be thin and abnormal consistency without scarring. I did perform some dissection down the lateral aspect of the loop of the duodenum to allow this to be mobilized slightly. At this point, I began a longitudinal incision in the area of the pylorus and extending distally. The lumen was entered and the incision was carried into the proximal duodenum. The lumen had been quite narrow in this area of the pylorus and the duodenal bulb proximally. The incision was therefore carried slightly more distal into the upper portion of the second portion of duodenum. The incision was then carried backwards into the distal stomach slightly. A thickened area was identified at the pylorus and the incision was carried until the lumen was clearly adequate for consideration of suturing. The tissues did not appear mobile enough to consider pulling them together in a transverse closure of the longitudinal incision. I therefore created what amounted to a Iram type closure of the incision. This was begun at the inferior aspect of the midpoint of the incision. Initially, I placed superior and inferior marker sutures of Vicryl. I then began an absorbable 2-0 Vicryl suture at the inferior edge at the midpoint of the incision. I then carried this inferiorly closing the inferior edge of the pylorus and distal stomach to the medial edge of the duodenal incision. This was performed as a running full-thickness closure. Once this reached the inferior extent of the possible closure, a second suture was begun at the superior midpoint of the longitudinal incision and this was used to close the anterior wall and anterior and superior portion of the pylorus and distal stomach to the lateral wall of the duodenum. Again, this was continued as a running full-thickness closure coming down to meet the other suture. The sutures were then sutured pass each other a short distance and then cut. I then performed a second layer of closure anteriorly again with a running suture of an absorbable 2-0 V-Loc to remove some tension from the first layer closure. This appeared to give a very nice secure closure of the pyloroplasty. The area was irrigated and hemostasis was excellent. I elected to place a drain. This was best accomplished by at this point un-docking the robot and was withdrawing the patient cart. A 19 [place] Main drain was inserted through one of the left upper quadrant ports and directed out through the 5 mm assistant coach port in the right upper quadrant. The drain was placed across the subhepatic space and across the area of the pyloroplasty. The patient was returned to a flat position. Final inspection showed excellent hemostasis. The abdomen was then deflated and the trocars were all removed. The drain was sutured to the skin with a 2-0 silk and the site was dressed with chlorhexidine, gluconate OpSite. The four 8 mm ports were closed with buried 4-0 Vicryl and Steri-Strips. Light dressings were applied. The orogastric tube and Fair catheter were both removed. The patient was awakened in the operating room, extubated and moved to the recovery room in stable condition.
== END 2020-10-23 11:23 | disposition home or self-care (01) | DRG 328 ==
LOC: M OR 06:00 → M MSPAV 14:33
PROVIDERS: ADMIT Surgery; ATTEND Surgery
PROC: 0DQ64ZZ Repair Stomach, Percutaneous Endoscopic Approach (ICD-10-PCS; 2020-10-20)
PROC: 8E0W4CZ Robotic Assisted Procedure of Trunk Region, Percutaneous Endoscopic Approach (ICD-10-PCS; 2020-10-20)
PROC: 008Q4ZZ Division of Vagus Nerve, Percutaneous Endoscopic Approach (ICD-10-PCS; principal; 2020-10-20 07:30)
DX: K31.1 Adult hypertrophic pyloric stenosis (principal); K27.9 Peptic ulcer, site unspecified, unspecified as acute or chronic, without hemorrhage or perforation

== ENCOUNTER 2020-11-22 23:56 | Inpatient (IN) | payer OTHER ==
[~2020-11-22] VITALS: Ht 154.9 cm; Wt 46.5 kg
[~2020-11-22 23:56] MED LIST changes: -UNRESOLVED CLARIFICATION ENTRY XX SCH
[2020-11-23] MEDS ORDERED: NS 1,000 ML IV SCH (01:01)
[2020-11-23 03:40] VITALS: BP 146/92
--- NOTE | 2020-11-23 03:55 | HPEPDOC ---
[facility] Medical History & Physical Date of Admission Nov 23, 2020 Date of Service: Nov 23, 2020 Attending Physician: GERMAINE SCHAFFER MD History and Physical TIME OF SERVICE: 405AM CHIEF COMPLAINT: vomiting HISTORY OF PRESENT ILLNESS: This 49 yr old F underwent lap truncal vagotomy with pyloroplasty in September to manage pyloric stenosis 2/2 PUD with gastric outlet obstruction; her second follow up appointment with is scheduled later on today. On Monday evening after eating dinner she had an abnormal sensation in her abdomen and felt like she would not be able to digest her food. On Monday she developed left mid & lower abdominal discomfort and nausea; she didnt eat the whole day because she felt to bloated, but she did have a BM. On Monday her abdomen begun to feel more tight and she vomited brow fluid which she describes as being smooth and thick in texture. She didnt notice if it was foul in smelling. She denies having fevers but had an episode of chills and sweating which she attributes to not eating for the last few days. Work-up at [facility]: WBC 7.0, Hg 14.5, Plt 274 Na 138, K 3.7,Cl 94, CO2 30, BUN 24, Cr 0.7, Glucose 130 Lipase 48, lactic acid 2.8 CT abd/pelvis Marked fluid distention. Findings consistent with proximal duodenal c-loop obstruction possibly due to volvulus and [an] underlying mass for a lead point is not excluded. Mild hiatal hernia. Providers at [place] requested transfer for a higher level of care. REVIEW OF SYSTEMS: 12-point review of systems negative except as listed in HPI PAST MEDICAL/ SURGICAL HISTORY: PUD Tubal ligation Laproscopic truncal vagotomy with pyloroplasty SOCIAL HISTORY: Quit smoking in December of 2019. Doesnt drink or use recreational drugs dependent FAMILY HISTORY: CHF, CKD, HTN, DM ALLERGIES: Please see below. HOME MEDICATIONS: Please see below. PHYSICAL EXAMINATION: VITAL SIGNS: Please see below. GENERAL APPEARANCE: well nourished / well developed/ NAD HEENT: NG in place CARDIOVASCULAR: RRR/NMRG/ radial pulses intact/ no LE edema LUNGS: CTAB ABDOMEN: post laparoscopy incision scars have healed well / abdomen is slightly distended and tender with palpation especially on the left MUSCULOSKELETAL: CRISTINA x 4 INTEGUMENT: flat hyperpigmented scars on abdomen NEUROLOGICAL: CN 2-12 intact / speech not dysarthric PSYCHIATRIC: A&Ox 3 / able to understand and follow all commands LABORATORY DATA: see HPI IMAGING: see HPI ASSESSMENT: is a 49 yr old who underwent laparoscopic truncal vagotomy with pyloroplasty to manage PUD w gastric outlet obstruction; she presented to [facility] w c/o abdominal pressure, vomiting and obstipation and was transferred to for a higher level of care. PLAN: 1. N/V/abdominal pain Possibly due to reoccurrence of gastric outlet obstruction Plan: admit to medical floor /f/u CBC, BMP, lactic acid, Mg / NG to LIS / NPO w D5NS & f/u FSBS to monitor for hypoglycemia / dilaudid PRN for pain / Zofran PRN for n/f/ per d/w will ask the day time team to contact to follow up DVT Px SCDs Dispo: home after more than 2 midnights stay Home Medications Scheduled Ascorbic Acid (Vitamin C) 500 Mg Tablet, 500 MG PO DAILY Cholecalciferol (Vitamin D3) (Vitamin D3) 1,000 Unit Tablet, Unknown Dose PO LIAM LY Pantoprazole Sodium (Pantoprazole Sodium) 40 Mg Tablet., 40 MG PO BID Allergies Coded Allergies: No Known Allergies (Unverified , 05/05/20) A-FIB/CHADSVASC A-FIB History Current/History of A-Fib/PAF?: No Current PO Anticoag Therapy: No GERMAINE SCHAFFER MD Nov 23, 2020 03:55
[2020-11-23 06:00] VITALS: BP 142/91
[2020-11-23] MEDS ORDERED: HYDROMORPHONE HCL 0.5 MG/ 0.5 ML SYRINGE (J1170 PER 1) IV PRN ×2 (06:30)
[2020-11-23 06:33] LABS: HEMATOCRIT 34.8 % (36.0-47.0); HEMOGLOBIN 11.3 g/dl (12.0-15.5); MEAN CORPUSCULAR HEMOGLOBIN 30.2 pg (27.0-33.0); MEAN CORPUSCULAR HGB CONC 32.5 g/dl (32.0-36.5); PLATELET COUNT, AUTOMATED 210 10^3/uL (150-450); RED BLOOD COUNT 3.74 10^6/uL (4.00-5.40); WHITE BLOOD COUNT 5.9 10^3/uL (4.0-10.0)
[2020-11-23 06:40] LABS: INR 1.13; PROTHROMBIN TIME 14.8 SECONDS (12.5-14.3)
[2020-11-23 06:41] LABS: PARTIAL THROMBOPLASTIN TIME 34.9 SECONDS (24.2-38.5)
[2020-11-23] MEDS ORDERED: D5W/0.9% SODIUM CHLORIDE 1,000 ML IV SCH (06:45)
[2020-11-23] MEDS ORDERED: ONDANSETRON 4MG/2ML VIAL IV PRN (06:45)
[2020-11-23 07:06] LABS: ALBUMIN 3.3 GM/DL (3.2-5.2); ALT/SGPT 54 U/L (12-78); BILIRUBIN,TOTAL 0.7 MG/DL (0.2-1.0); BLOOD UREA NITROGEN 20 MG/DL (7-18); CALCIUM LEVEL 8.2 MG/DL (8.5-10.1); CARBON DIOXIDE LEVEL 29 MEQ/L (21-32); CHLORIDE LEVEL 109 MEQ/L (98-107); GLOMERULAR FILTRATION RATE > 60.0 (>51); GLUCOSE, FASTING 86 MG/DL (70-100); POTASSIUM SERUM 3.5 MEQ/L (3.5-5.1); SODIUM LEVEL 143 MEQ/L (136-145); TOTAL PROTEIN 6.2 GM/DL (6.4-8.2)
[2020-11-23] MEDS ORDERED: PANT40TA29 PO (07:47)
[2020-11-23 08:19] LABS: RSV AMPLIFICATION NEGATIVE (NEGATIVE)
--- NOTE | 2020-11-23 09:19 | IPN ---
PROGRESS NOTE DATE: 11/23/2020 SUBJECTIVE: Dustin is a patient who found her way onto the hospital service. She underwent a laparoscopic truncal vagotomy with pyloroplasty in September for a pyloric stenosis from peptic ulcer disease. Recovered well. She was admitted with abdominal pain and distention. Had CT of the abdomen and pelvis at [facility] that showed marked fluid distention, findings consistent with proximal duodenal C-loop obstruction probably due to the volvulus and underlying mass from a lead point could not be excluded. A nasogastric tube was passed. Surgery was consulted, but admitting doctor was advised to have the day team contact Dr. Edouard today who performed the surgery. He and I did speak today. He is aware of the admission. OBJECTIVE: VITAL SIGNS: Afebrile. Vital signs are stable. GENERAL APPEARANCE: She is alert, conversant, and feels better with nasogastric functioning in place. LUNGS: Clear. HEART: Regular rate and rhythm. ABDOMEN: Soft. Decompressed. Nontender. EXTREMITIES: No peripheral edema. IMPRESSION: Duodenal obstruction. PLAN: Nasogastric tube is in place. She is receiving intravenous (IV) fluids. Dr. Edouard is aware of the admission. Further treatment as per surgery.
[2020-11-23] MEDS: KCL 20MEQ IN D5/0.45NS 1000ML 1,000 ML IV SCH ×2 (10:52→20:13)
[2020-11-23 14:00] VITALS: BP 144/90
--- NOTE | 2020-11-23 18:45 | CR ---
CONSULTATION DATE: 11/23/2020 REASON FOR CONSULTATION: Recurrent gastric outlet obstruction. HISTORY OF PRESENT ILLNESS: The patient is a very pleasant, 49-year-old woman, well known to me from recent surgery. I had met this patient in April when she presented with a history of nausea and vomiting and was found to have gastric outlet obstruction related to scarring in the pylorus and an acute duodenal ulcer. She was seen and endoscoped both by me and Dr. Esparza of gastroenterology. She was treated with proton pump inhibitors and her acute ulcer healed but she was left with a significant narrowing in the pylorus. Dr. Esparza did not think that balloon dilatation was likely to result in a lasting improvement and was also concerned about the possibility of perforation given the location of the narrowing. She did well clinically with resolution of her acute ulcer but then developed recurrence of her symptoms with intolerance for solid foods. A repeat upper endoscopy was performed on August 20 and this revealed a large amount of food residue within the stomach and a benign appearing intrinsic severe stenosis at the pylorus. It was not possible to advance the scope through the narrowing. The patient underwent a truncal vagotomy with pyloroplasty as a robotic-assisted laparoscopic procedure on the 20 of October. She had a contrast swallow done on postop day #1 that showed free flow of contrast through her pyloroplasty with no evidence of significant narrowing or leak. When seen in the office on the 28 of October, she reported that she was doing very well, tolerating a bland soft diet. She was to follow up with me in the office today, the 23 of November. However, the patient was admitted to [facility] early in the morning on the by the hospitalist service. The patient reported that on Monday evening, the 20 of November, she had noticed some fullness in the upper abdomen. She ate very little during the course of the day on Monday and noted some discomfort in the left mid and lower abdomen with some nausea. On Monday the , she began to feel more distended and she developed some vomiting with some brownish fluid. She presented at [facility] where she was evaluated with a CT scan and some laboratory studies. The CT scan reportedly showed a distended fluid-filled stomach with evidence for obstruction in the region of the proximal duodenum. She was transferred from [facility] to [facility] for a higher level of care. I was consulted this morning to evaluate her. She had a nasogastric tube placed at the time of admission. ALLERGIES: The patient has no known allergies to medications. MEDICATIONS: The patient has remained on pantoprazole 40 mg p.o. twice daily. PAST MEDICAL HISTORY: Significant only for her history of peptic ulcer disease. She does report having had an episode of transient outlet obstruction some years ago apparently related to peptic ulcer disease which remitted with medical therapy. Since April, she has been dealing with her current bout of gastric outlet obstruction with evidence for initially acute duodenal ulcer. PAST SURGICAL HISTORY: The patient had a bilateral tubal ligation in 1996. She has had at least three upper endoscopies in the last six months to a year. She underwent a robotic-assisted laparoscopic truncal vagotomy and pyloroplasty on October 20, 2020. SOCIAL HISTORY: The patient denies any significant alcohol intake. She is a former fairly light smoker but reports that she has now quit. FAMILY HISTORY: Noncontributory. REVIEW OF SYSTEMS: Reveals no history of chest pain, palpitations or cardiac problems. She has no cough, wheezing or sputum production. She denies any melena or hematochezia or history of gastrointestinal bleeding. She has no dysuria or hematuria. She denies any bone or joint problems. She has had no history of DVT or pulmonary embolus. There is no history of chronic severe headaches, seizure or stroke. PHYSICAL EXAMINATION: General: Reveals a very pleasant woman sitting up in the hospital bed with a nasogastric tube in place. She is alert, oriented and cooperative. She recognizes me readily. Skin: Warm and dry. HEENT: Sclerae are anicteric. Neck: Supple without mass. Heart: Shows a regular rate and rhythm without murmur. Lungs: Clear to auscultation bilaterally. Abdomen: Shows five small scars across the upper abdomen consistent with her recent laparoscopic surgery. They appear to be well healed. The abdomen remains somewhat full. She does have bowel sounds present. There is some dullness to percussion in the left upper quadrant and left mid-abdomen. On palpation, there is a sensation of fullness in the left upper quadrant and left mid-abdomen but there is no significant tenderness to palpation. There is no sign of abdominal hernia. Extremities: Show palpable radial and pedal pulses with no peripheral edema. LABORATORY STUDIES: From this morning at [facility] show a white count of 6, hemoglobin 11, hematocrit 35 and a platelet count 210,000. Her PT is 14.8 with an INR of 1.1 ands a PTT of 35. Chemistry profile shows sodium 143, potassium 3.5, chloride 109, CO2 of 29, BUN of 20, creatinine 0.6 and a glucose of 86. Liver function tests are normal with a total protein of 6.2 and albumin of 3.3. COVID and other respiratory illness testing is negative. IMAGING STUDIES: She had a disk from a CT scan obtained at [facility] in the chart and I reviewed the images from this study. She has a markedly distended and fluid-filled stomach which extends all the way down into the pelvis and loops back up to the duodenum. There is no free fluid or free air. The lumen of the second portion of the duodenum is evident and contains a small amount of air. It is difficult to punch hand the area of her pyloroplasty although there is certainly no evidence of infection or fluid collection or leaks. IMPRESSION: The patient is now one month postop from a laparoscopic truncal vagotomy and pyloroplasty. She had initially done very well from her surgery but now seems to have redeveloped a gastric outlet obstruction. RECOMMENDATIONS: I would certainly continue her nasogastric tube and keep her NPO at this time. Once her stomach has had an opportunity to decompress, a repeat endoscopy would be appropriate to assess her pyloroplasty. It may be that a balloon dilatation would be possible to improve the outflow but I suspect that we will ultimately need to proceed with another drainage procedure, probably a gastrojejunostomy to address her issues. I counseled her that we will need to keep her NPO and try to decompress her stomach before proceeding with the endoscopy. She understands the situation and is agreeable with the plan. I will put her on her Protonix twice daily although as she has had a truncal vagotomy, her gastric acid production should be quite low. [facility]
[2020-11-23] MEDS: PANTOPRAZOLE 40MG VIAL (C9113 PER 1) IV SCH (20:13)
[2020-11-23 22:00] VITALS: BP 142/89
[2020-11-24 06:00] VITALS: BP 132/84
[2020-11-24] MEDS: KCL 20MEQ IN D5/0.45NS 1000ML 1,000 ML IV SCH (06:12)
[2020-11-24 07:19] LABS: HEMATOCRIT 35.8 % (36.0-47.0); HEMOGLOBIN 11.5 g/dl (12.0-15.5); MEAN CORPUSCULAR HEMOGLOBIN 29.9 pg (27.0-33.0); MEAN CORPUSCULAR HGB CONC 32.1 g/dl (32.0-36.5); PLATELET COUNT, AUTOMATED 210 10^3/uL (150-450); RED BLOOD COUNT 3.85 10^6/uL (4.00-5.40)
[2020-11-24 07:58] LABS: BLOOD UREA NITROGEN 7 MG/DL (7-18); CALCIUM LEVEL 8.5 MG/DL (8.5-10.1); CARBON DIOXIDE LEVEL 28 MEQ/L (21-32); CHLORIDE LEVEL 112 MEQ/L (98-107); CREATININE FOR GFR 0.56 MG/DL (0.55-1.30); GLOMERULAR FILTRATION RATE > 60.0 (>51); GLUCOSE, FASTING 95 MG/DL (70-100); MAGNESIUM LEVEL 1.9 MG/DL (1.8-2.4); POTASSIUM SERUM 3.7 MEQ/L (3.5-5.1); SODIUM LEVEL 144 MEQ/L (136-145)
[2020-11-24] MEDS: PANTOPRAZOLE 40MG VIAL (C9113 PER 1) IV SCH ×2 (08:41→20:25)
[2020-11-24] MEDS: D5W/0.45% SODIUM CHLORIDE 1,000 ML IV SCH ×2 (08:41→17:48)
[2020-11-24 14:00] VITALS: BP 127/83
--- NOTE | 2020-11-24 17:01 | IPNPDOC ---
Date Seen The patient was seen on 11/24/20. Progress Note SUBJECTIVE: No acute complaints overnight beside discomfort from NG tube to low intermittent suction. Denies chest pain, shortness of breath, nausea, abdominal pain. OBJECTIVE: PHYSICAL EXAMINATION: VITAL SIGNS: Please see below GENERAL APPEARANCE: NAD, resting in bed, AAOx3 HEENT: NG tube in place, secured. NECK: symmetrical LUNGS: CTAB, No W/R/R HEART: S1S2 +, no M/R/G ABDOMEN: Soft. Decompressed. Nontender. BS + 4 quadrants EXTREMITIES: No peripheral edema. NEURO: CN 2-12 intact Psych: Mood and affected appropriate LABS: Please see below IMAGING: No new imaging A/P: Gastric outlet obstruction -NG tube in place with low intermittent suction -Per surgery, likely needing endoscopy to assess pyloroplasty. May also need balloon dilatation. -PPI BID -NPO, IVFs -Pain control PRN -Surgery consulted, f/u recommendations GI px -PPI DVT px -Heparin SC DISPOSITION: Possible scope 11/25/20, f/u Surgery (Dr. Edouard's) recommendations. Plan is home when medically improved. VS, I&O, 24H, Fishbone Vital Signs/I&O Vital Signs Date Time Temp Pulse Resp B/P (MAP) Pulse Ox O2 Delivery O2 Flow Rate FiO2 11/24/20 14:00 98.2 91 20 127/83 (98) 98 Room Air I&O- Last 24 Hours up to 6 AM 11/24/20 06:00 Intake Total 2260 ml Output Total 2250 ml Balance 10 ml Laboratory Data 24H LABS Laboratory Tests 2 11/24/20 06:23: Nucleated Red Blood Cells % (auto) 0.0, Anion Gap 4L, Glomerular Filtration Rate > 60.0, Calcium Level 8.5, Magnesium Level 1.9 CBC/BMP Laboratory Tests 11/24/20 06:23 Current Medications Current Medications Medications (Trade) Dose Ordered Sig/Niranjan Route PRN Reason Start Time Stop Time Status Last Admin Dose Admin Dextrose/Sodium Chloride 1,000 ml @ 90 mls/hr Q11H7M IV 11/23/20 06:45 11/23/20 09:04 DC 11/23/20 07:29 Dextrose/Sodium Chloride 1,000 ml @ 100 mls/hr Q10H IV 11/24/20 08:30 11/24/20 08:41 Home Med (Med Rec Complete!) ASDIRECTED XX 11/23/20 08:00 11/23/20 07:48 DC Hydromorphone HCl (Dilaudid) 0.5 mg Q3HP PRN IV MILD PAIN (PS 1-4) 11/23/20 06:30 Hydromorphone HCl (Dilaudid) 0.8 mg Q3HP PRN IV MODERATE/SEVERE PAIN (PS 5-10) 11/23/20 06:30 Ondansetron HCl (ZOFRAN INJection) 2 mg Q4HP PRN IV NAUSEA OR VOMITING 11/23/20 06:45 Pantoprazole Sodium (Protonix) 40 mg BID IV 11/23/20 21:00 11/24/20 08:41 Potassium Chloride/Dextrose/ Sod Cl 1,000 ml @ 100 mls/hr Q10H IV 11/23/20 09:15 11/24/20 08:28 DC 11/24/20 06:12 Sodium Chloride 1,000 ml @ 90 mls/hr Q11H7M IV 11/23/20 01:01 11/23/20 06:41 DC 11/23/20 04:07 Allergies Coded Allergies: No Known Allergies (Unverified , 05/05/20) Carla Lerma MD Nov 24, 2020 17:01
[2020-11-24] MEDS: HEPARIN SOD (PORCINE) 5000UNITS/ML 1ML VIAL/SYRINGE SQ SCH (20:25)
[2020-11-24 22:00] VITALS: BP 148/84
--- NOTE | 2020-11-24 23:10 | IPN ---
PROGRESS NOTE DATE: 11/24/2020 HISTORY: The patient was seen yesterday after she was readmitted with evidence for a recurrence of her gastric outlet obstruction. The patient had undergone a robotic assisted laparoscopic pyloroplasty with truncal vagotomy just about a month ago. She has a nasogastric tube in place for decompression and is n.p.o. She denies any pain today. Vital signs show that she has been afebrile over the past 24 hours. Her pulse has been in the 80s to low 90s and her blood pressure is excellent. Room air oxygen saturation is normal. Intake and output showed that yesterday she had 1840 in with 1925 out. She had 1075 of NG drainage and that seems to be diminished today. PHYSICAL EXAMINATION: The patient is alert and oriented. She denies any pain. Abdomen is flat and soft. She does have some bowel sounds present. The NG tube is in to an appropriate depth and is draining a small amount of lightly turbid fluid. LABORATORY STUDIES: Today show a white count of 5, hemoglobin 12, hematocrit 36 and a platelet count of 210,000. The electrolytes show her to have a sodium of 144, potassium 3.7, chloride 112, Co2 28, BUN of 7, creatinine 0.56 and a glucose of 95. IMPRESSION : The patient has a recurrence of her gastric outlet obstruction now just one month postop from her truncal vagotomy and pyloroplasty. PLAN: The patient was counseled for an upper endoscopy. This will be scheduled for the afternoon of the 25 of November. Her NG tube should be remain in place for the time being. If an area is found that could be dilated with a balloon dilator, then this can be accomplished tomorrow. If she has significant scaring that would preclude dilation, then the patient will require a gastrojejunostomy.
[2020-11-25] MEDS: D5W/0.45% SODIUM CHLORIDE 1,000 ML IV SCH ×2 (02:56→18:29)
[2020-11-25 06:00] VITALS: BP 145/83
[2020-11-25 08:03] LABS: HEMATOCRIT 37.9 % (36.0-47.0); HEMOGLOBIN 12.2 g/dl (12.0-15.5); MEAN CORPUSCULAR HGB CONC 32.2 g/dl (32.0-36.5); MEAN CORPUSCULAR VOLUME 90.2 fl (80.0-96.0); PLATELET COUNT, AUTOMATED 240 10^3/uL (150-450); WHITE BLOOD COUNT 5.5 10^3/uL (4.0-10.0)
[2020-11-25 08:33] LABS: ALBUMIN 3.7 GM/DL (3.2-5.2); ALT/SGPT 45 U/L (12-78); BILIRUBIN,TOTAL 0.5 MG/DL (0.2-1.0); BLOOD UREA NITROGEN 4 MG/DL (7-18); CALCIUM LEVEL 9.3 MG/DL (8.5-10.1); CARBON DIOXIDE LEVEL 29 MEQ/L (21-32); CHLORIDE LEVEL 105 MEQ/L (98-107); CREATININE FOR GFR 0.59 MG/DL (0.55-1.30); GLOMERULAR FILTRATION RATE > 60.0 (>51); GLUCOSE, FASTING 100 MG/DL (70-100); POTASSIUM SERUM 3.4 MEQ/L (3.5-5.1); SODIUM LEVEL 143 MEQ/L (136-145); TOTAL PROTEIN 7.2 GM/DL (6.4-8.2)
[2020-11-25] MEDS: HEPARIN SOD (PORCINE) 5000UNITS/ML 1ML VIAL/SYRINGE SQ SCH ×2 (09:00→20:30)
[2020-11-25] MEDS: PANTOPRAZOLE 40MG VIAL (C9113 PER 1) IV SCH ×2 (09:54→20:30)
[2020-11-25] MEDS: KCL 10MEQ/100ML SWI (KRUN) 10 MEQ in IV 1 EA IV SCH ×2 (09:55→11:53)
--- NOTE | 2020-11-25 13:22 | IPNPDOC ---
Date Seen The patient was seen on 11/25/20. Progress Note SUBJECTIVE: Endoscopy scheduled for today. Denies chest pain, shortness of breath, nausea, abdominal pain. OBJECTIVE: PHYSICAL EXAMINATION: VITAL SIGNS: Please see below GENERAL APPEARANCE: NAD, resting in bed, AAOx3 HEENT: NG tube in place, secured. NECK: symmetrical LUNGS: CTAB, No W/R/R HEART: S1S2 +, no M/R/G ABDOMEN: Soft. Decompressed. Nontender. BS + 4 quadrants EXTREMITIES: No peripheral edema. NEURO: CN 2-12 intact Psych: Mood and affected appropriate LABS: Please see below IMAGING: No new imaging A/P: Gastric outlet obstruction -NG tube in place with low intermittent suction -Endoscopy today to further assess pyloroplasty. May also need balloon dilatation. -PPI BID -NPO, IVFs -Pain control PRN -Surgery consulted, f/u recommendations GI px -PPI DVT px -Heparin SC DISPOSITION: F/u Surgery (Dr. Edouard's) recommendations. Plan is home when medically improved. VS, I&O, 24H, Fishbone Vital Signs/I&O Vital Signs Date Time Temp Pulse Resp B/P (MAP) Pulse Ox O2 Delivery O2 Flow Rate FiO2 11/25/20 06:00 97.3 84 17 145/83 (103) 97 Room Air I&O- Last 24 Hours up to 6 AM 11/25/20 06:00 Intake Total 2400 ml Output Total 1000 ml Balance 1400 ml Laboratory Data 24H LABS Laboratory Tests 2 11/25/20 06:44: Nucleated Red Blood Cells % (auto) 0.0, Anion Gap 9, Glomerular Filtration Rate > 60.0, Calcium Level 9.3, Total Bilirubin 0.5, Aspartate Amino Transf (AST/SGOT) 25, Alanine Aminotransferase (ALT/SGPT) 45, Alkaline Phosphatase 67, Total Protein 7.2, Albumin 3.7, Albumin/Globulin Ratio 1.1L CBC/BMP Laboratory Tests 11/25/20 06:44 Current Medications Current Medications Medications (Trade) Dose Ordered Sig/Niranjan Route PRN Reason Start Time Stop Time Status Last Admin Dose Admin Dextrose/Sodium Chloride 1,000 ml @ 90 mls/hr Q11H7M IV 11/23/20 06:45 11/23/20 09:04 DC 11/23/20 07:29 Dextrose/Sodium Chloride 1,000 ml @ 100 mls/hr Q10H IV 11/24/20 08:30 11/25/20 02:56 Heparin Sodium (Porcine) (Heparin) 5,000 units Q12H SQ 11/24/20 21:00 Home Med (Med Rec Complete!) ASDIRECTED XX 11/23/20 08:00 11/23/20 07:48 DC Hydromorphone HCl (Dilaudid) 0.5 mg Q3HP PRN IV MILD PAIN (PS 1-4) 11/23/20 06:30 Hydromorphone HCl (Dilaudid) 0.8 mg Q3HP PRN IV MODERATE/SEVERE PAIN (PS 5-10) 11/23/20 06:30 Ondansetron HCl (ZOFRAN INJection) 2 mg Q4HP PRN IV NAUSEA OR VOMITING 11/23/20 06:45 Pantoprazole Sodium (Protonix) 40 mg BID IV 11/23/20 21:00 11/25/20 09:54 Potassium Chloride 10 meq/ IV Miscellaneous Supplies 100 ml @ 100 mls/hr Q1H IV 11/25/20 09:00 11/25/20 11:59 DC 11/25/20 11:53 Potassium Chloride/Dextrose/ Sod Cl 1,000 ml @ 100 mls/hr Q10H IV 11/23/20 09:15 11/24/20 08:28 DC 11/24/20 06:12 Sodium Chloride 1,000 ml @ 90 mls/hr Q11H7M IV 11/23/20 01:01 11/23/20 06:41 DC 11/23/20 04:07 Allergies Coded Allergies: No Known Allergies (Unverified , 05/05/20) Carla Lerma MD Nov 25, 2020 13:22
[2020-11-25] MEDS ORDERED: propofoL 200 MG/20 ML VIAL As Ordered ONE (15:11)
[2020-11-25] MEDS ORDERED: LIDOCAINE 2% 100MG/5ML SDV (FOR ANES.) As Ordered ONE (15:11)
[2020-11-25] MEDS ORDERED: fentaNYL 100 MCG/2 ML INJECTION (J3010) As Ordered ONE (15:11)
--- NOTE | 2020-11-25 15:51 | ROOR ---
Patient Name: Dustin Alfaro Procedure Date: 11/25/2020 3:13 PM Date of : 1970 Age: 49 Room: [facility] Gender: Female Note Status: Finalized Procedure: Upper GI endoscopy Indications: Diagnostic procedure, Follow-up of pyloric stenosis, Patient with recurrrent gastric outlet obstruction 1 month post pyloroplasty. Providers: Milad Edouard MD Referring MD: RUI LAUGHLIN MD Requesting Provider: Medicines: Monitored Anesthesia Care Complications: No immediate complications. Procedure: Pre-Anesthesia Assessment: - Prior to the procedure, a History and Physical was performed, and patient medications and allergies were reviewed. The patient is competent. The risks and benefits of the procedure and the sedation options and risks were discussed with the patient. All questions were answered and informed consent was obtained. Patient identification and proposed procedure were verified by the physician, the nurse and the collaborative teacher in the procedure room. Mental Status Examination: alert and oriented. Airway Examination: normal oropharyngeal airway and neck mobility. Respiratory Examination: clear to auscultation. Prophylactic Antibiotics: The patient does not require prophylactic antibiotics. Prior Anticoagulants: The patient has taken no previous anticoagulant or antiplatelet agents. ASA Grade Assessment: II - A patient with mild systemic disease. After reviewing the risks and benefits, the patient was deemed in satisfactory condition to undergo the procedure. The anesthesia plan was to use monitored anesthesia care (MAC). Immediately prior to administration of medications, the patient was re-assessed for adequacy to receive sedatives. The heart rate, respiratory rate, oxygen saturations, blood pressure, adequacy of pulmonary ventilation, and response to care were monitored throughout the procedure. The physical status of the patient was re-assessed after the procedure. The Endoscope was introduced through the mouth, and advanced to the second part of duodenum. The upper GI endoscopy was accomplished without difficulty. The patient tolerated the procedure well. Findings: Non-severe esophagitis with no bleeding was found at the gastroesophageal junction. The entire examined stomach was normal. There was evidence of a patent but strictured pyloroplasty in the duodenal bulb. This was characterized by erythema, friable mucosa, mild stenosis and visible sutures. The second portion of the duodenum and major papilla were normal. Impression: - Non-severe acute esophagitis. - Normal stomach. - Patent but strictured pyloroplasty, characterized by erythema, friable mucosa, mild stenosis and visible sutures was found. - Normal second portion of the duodenum and major papilla. - No specimens collected. Recommendation: - Return patient to [facility] for ongoing care. - NPO. - Observe patient's clinical course. Procedure Code(s): --- Professional --- 38658, Esophagogastroduodenoscopy, flexible, transoral; diagnostic, including collection of specimen(s) by brushing or washing, when performed (separate procedure) Diagnosis Code(s): --- Professional --- K20.9, Esophagitis, unspecified Z98.890, Other specified postprocedural states K31.1, Adult hypertrophic pyloric stenosis CPT copyright 2019 [employer]. All rights reserved. The codes documented in this report are preliminary and upon collaborative teacher review may be revised to meet current compliance requirements. Milad Edouard MD Milad Edouard MD 11/25/2020 3:51:02 PM Electronically signed by Milad Edouard MD Number of Addenda: 0 Note Initiated On: 11/25/2020 3:13 PM Estimated Blood Loss: Estimated blood loss was minimal.
[2020-11-25 16:05] VITALS: BP 146/84
[2020-11-25 22:00] VITALS: BP 146/87
[2020-11-26] MEDS: D5W/0.45% SODIUM CHLORIDE 1,000 ML IV SCH ×3 (00:30→22:08)
[2020-11-26 06:00] VITALS: BP 141/86
[2020-11-26] MEDS: PANTOPRAZOLE 40MG VIAL (C9113 PER 1) IV SCH ×2 (08:36→22:08)
[2020-11-26] MEDS: HEPARIN SOD (PORCINE) 5000UNITS/ML 1ML VIAL/SYRINGE SQ SCH ×3 (08:37→21:00)
[2020-11-26 08:49] LABS: HEMATOCRIT 34.9 % (36.0-47.0); HEMOGLOBIN 11.6 g/dl (12.0-15.5); MEAN CORPUSCULAR HEMOGLOBIN 29.5 pg (27.0-33.0); MEAN CORPUSCULAR HGB CONC 33.2 g/dl (32.0-36.5); MEAN CORPUSCULAR VOLUME 88.8 fl (80.0-96.0); PLATELET COUNT, AUTOMATED 207 10^3/uL (150-450); RED BLOOD COUNT 3.93 10^6/uL (4.00-5.40); WHITE BLOOD COUNT 4.4 10^3/uL (4.0-10.0)
--- NOTE | 2020-11-26 09:04 | IPNPDOC ---
Date Seen The patient was seen on 11/26/20. Progress Note SUBJECTIVE: S/p endoscopy 11/26/20. Decision about water soluble contrast swallow vs. other testing to be decided on today by surgery. NG tube still in place. Denies chest pain, shortness of breath, nausea, abdominal pain. OBJECTIVE: PHYSICAL EXAMINATION: VITAL SIGNS: Please see below GENERAL APPEARANCE: NAD, resting in bed, AAOx3 HEENT: NG tube in place, secured. NECK: symmetrical LUNGS: CTAB, No W/R/R HEART: S1S2 +, no M/R/G ABDOMEN: Soft. Nontender. BS + 4 quadrants EXTREMITIES: No peripheral edema. NEURO: CN 2-12 intact Psych: Mood and affected appropriate LABS: Please see below IMAGING: No new imaging A/P: Gastric outlet obstruction -NG tube in place with low intermittent suction -Endoscopy: narrowing seen at area of pyloroplasty. water soluble contrast swal low vs. other imaging/procedure to be decided on today by surgery -PPI BID -NPO, IVFs -Pain control PRN -Surgery consulted, f/u recommendations GI px -PPI DVT px -Heparin SC DISPOSITION: F/u Surgery (Dr. Edouard's) recommendations. Plan is home when medically improved. VS, I&O, 24H, Fishbone Vital Signs/I&O Vital Signs Date Time Temp Pulse Resp B/P (MAP) Pulse Ox O2 Delivery O2 Flow Rate FiO2 11/26/20 06:00 97.8 83 19 141/86 (104) 97 Room Air I&O- Last 24 Hours up to 6 AM 11/26/20 06:00 Intake Total 1680 ml Output Total 1250 ml Balance 430 ml Laboratory Data 24H LABS Laboratory Tests 2 11/26/20 07:53: Nucleated Red Blood Cells % (auto) 0.0 CBC/BMP Laboratory Tests 11/26/20 07:53 Current Medications Current Medications Medications (Trade) Dose Ordered Sig/Niranjan Route PRN Reason Start Time Stop Time Status Last Admin Dose Admin Dextrose/Sodium Chloride 1,000 ml @ 90 mls/hr Q11H7M IV 11/23/20 06:45 11/23/20 09:04 DC 11/23/20 07:29 Dextrose/Sodium Chloride 1,000 ml @ 100 mls/hr Q10H IV 11/24/20 08:30 11/25/20 18:29 Heparin Sodium (Porcine) (Heparin) 5,000 units Q12H SQ 11/24/20 21:00 Home Med (Med Rec Complete!) ASDIRECTED XX 11/23/20 08:00 11/23/20 07:48 DC Hydromorphone HCl (Dilaudid) 0.5 mg Q3HP PRN IV MILD PAIN (PS 1-4) 11/23/20 06:30 Hydromorphone HCl (Dilaudid) 0.8 mg Q3HP PRN IV MODERATE/SEVERE PAIN (PS 5-10) 11/23/20 06:30 Ondansetron HCl (ZOFRAN INJection) 2 mg Q4HP PRN IV NAUSEA OR VOMITING 11/23/20 06:45 Pantoprazole Sodium (Protonix) 40 mg BID IV 11/23/20 21:00 11/26/20 08:36 Potassium Chloride 10 meq/ IV Miscellaneous Supplies 100 ml @ 100 mls/hr Q1H IV 11/25/20 09:00 11/25/20 11:59 DC 11/25/20 11:53 Potassium Chloride/Dextrose/ Sod Cl 1,000 ml @ 100 mls/hr Q10H IV 11/23/20 09:15 11/24/20 08:28 DC 11/24/20 06:12 Sodium Chloride 1,000 ml @ 90 mls/hr Q11H7M IV 11/23/20 01:01 11/23/20 06:41 DC 11/23/20 04:07 Allergies Coded Allergies: No Known Allergies (Unverified , 05/05/20) Carla Lerma MD Nov 26, 2020 09:04
[2020-11-26 09:16] LABS: ALBUMIN 3.5 GM/DL (3.2-5.2); ALT/SGPT 36 U/L (12-78); BILIRUBIN,TOTAL 0.5 MG/DL (0.2-1.0); BLOOD UREA NITROGEN 6 MG/DL (7-18); CALCIUM LEVEL 8.8 MG/DL (8.5-10.1); CARBON DIOXIDE LEVEL 29 MEQ/L (21-32); CHLORIDE LEVEL 104 MEQ/L (98-107); CREATININE FOR GFR 0.48 MG/DL (0.55-1.30); GLOMERULAR FILTRATION RATE > 60.0 (>51); GLUCOSE, FASTING 106 MG/DL (70-100); POTASSIUM SERUM 3.5 MEQ/L (3.5-5.1); SODIUM LEVEL 142 MEQ/L (136-145); TOTAL PROTEIN 6.6 GM/DL (6.4-8.2)
[2020-11-26] MEDS ORDERED: CHLORASEPTIC SPRAY MT PRN (12:15)
[2020-11-26] MEDS ORDERED: GASTROGRAFIN SOLUTION 30ML (Q9963) As Ordered ONE (12:51)
[2020-11-26 15:19] VITALS: BP 133/85
[2020-11-26 22:00] VITALS: BP 135/81
[2020-11-27 05:48] LABS: HEMATOCRIT 34.2 % (36.0-47.0); HEMOGLOBIN 11.6 g/dl (12.0-15.5); MEAN CORPUSCULAR HGB CONC 33.9 g/dl (32.0-36.5); MEAN CORPUSCULAR VOLUME 88.4 fl (80.0-96.0); PLATELET COUNT, AUTOMATED 221 10^3/uL (150-450); RED BLOOD COUNT 3.87 10^6/uL (4.00-5.40); WHITE BLOOD COUNT 5.9 10^3/uL (4.0-10.0)
[2020-11-27 06:00] VITALS: BP 127/65
[2020-11-27 06:26] LABS: ALBUMIN 3.4 GM/DL (3.2-5.2); ALT/SGPT 32 U/L (12-78); BILIRUBIN,TOTAL 0.6 MG/DL (0.2-1.0); BLOOD UREA NITROGEN 6 MG/DL (7-18); CALCIUM LEVEL 8.9 MG/DL (8.5-10.1); CARBON DIOXIDE LEVEL 29 MEQ/L (21-32); CHLORIDE LEVEL 104 MEQ/L (98-107); GLOMERULAR FILTRATION RATE > 60.0 (>51); GLUCOSE, FASTING 111 MG/DL (70-100); POTASSIUM SERUM 3.3 MEQ/L (3.5-5.1); SODIUM LEVEL 143 MEQ/L (136-145); TOTAL PROTEIN 6.7 GM/DL (6.4-8.2)
[2020-11-27] MEDS: D5W/0.45% SODIUM CHLORIDE 1,000 ML IV SCH (06:30)
[2020-11-27] MEDS: HEPARIN SOD (PORCINE) 5000UNITS/ML 1ML VIAL/SYRINGE SQ SCH ×2 (08:43→20:46)
[2020-11-27] MEDS: PANTOPRAZOLE 40MG VIAL (C9113 PER 1) IV SCH ×2 (08:43→20:46)
--- NOTE | 2020-11-27 08:49 | REP ---
INDICATION: water soluble contrast swallow for pyloric stenosis. COMPARISON: None TECHNIQUE: This procedure was performed by Nikia Ye [facility], under the direct supervision of Dr. June. Images were reviewed with Dr. June prior to dictation. 220 mL of a 50/50 solution of Gastrografin in saline was instilled via the patient's NG tube, to do a limited upper GI exam. FINDINGS: The outside operator film shows no organomegaly or pathological masses. The intestinal gas pattern is unremarkable. The stomach alba are normally outlined. The rugal folds are smooth and regular. There is no gastritis, neoplasm, or ulcerative disease. There is delayed emptying of the stomach. There is poor visualization of the duodenum with some contrast in the proximal small bowel after 1 hour IMPRESSION: Delayed emptying of the stomach. Imaging obtained 1 hour after study demonstrated an extremely small amount of contrast in the proximal small bowel. The pylorus and duodenal bulb are poorly seen. 1.0 minutes of fluoroscopy time was utilized for this procedure. Some fluoroscopic images are performed with last image hold technology. These images require no additional radiation. <Electronically signed by Nikia Ye > 11/26/20 [id number] <Electronically signed by Piter June > 11/27/20 [id number]
[2020-11-27] MEDS ORDERED: KCL 10MEQ/100ML SWI (KRUN) 10 MEQ in IV 1 EA IV SCH (09:00)
--- NOTE | 2020-11-27 11:19 | IPN ---
PROGRESS NOTE DATE: 11/26/2020 HISTORY: Patient was readmitted this past weekend with evidence for recurrent gastric outlet obstruction despite her pyloroplasty about a month ago. She had a contrast swallow today, which shows certainly delayed emptying of her stomach. Her nasogastric (NG) output, however, seems to be decreased and she denies any pain. Vital signs show that she has been afebrile over the past 24 hours with a pulse in the 70s and low 80s and a blood pressure that is acceptable. Intake and output show that yesterday she had a 1700 in with 850 mL of urine recorded out. PHYSICAL EXAMINATION: Patient is alert and oriented. The NG tube is becoming more uncomfortable and she is hoarse today. HEART AND LUNG EXAM: Unremarkable. ABDOMEN: Soft, nontender and non-distended. LABORATORY STUDIES: Today show a white count of 4, hemoglobin 12, hematocrit 35 and a platelet count of 207,000. Chemistries show normal electrolytes with a BUN of 6, creatinine 0.5 and a glucose of 106. Liver function tests are normal. IMPRESSION: Patient has recurrence of a gastric outlet obstruction, despite her pyloroplasty about a month ago. On her endoscopy yesterday, I was able to advance the scope through the area of the pyloroplasty, but it did appear somewhat angled and narrowed. She has a quite dilated stomach. It may well be that her pyloroplasty is just not going to be adequate. Her gastric motility is probably diminished following her vagotomy as well. PLAN: I will try clamping her NG tube overnight and see if she develops a residual. If not, I will consider removing her NG tube and letting her go back to a diet that is entirely clear liquids with no solid food whatsoever. This may allow us to temporize us for time until we can get her scheduled for a gastrojejunostomy for better gastric drainage. If she fails the trial of NG clamping, the we may need to put her back on intravenous nutrition while we prepare her for repeat surgery.
[2020-11-27] MEDS: KCL 40MEQ IN D5/0.45NS 1000ML 1,000 ML IV SCH ×2 (11:56→21:02)
[2020-11-27] MEDS ORDERED: ACETAMINOPHEN TAB 650MG DOSE (2X325MG) PO PRN (12:00)
--- NOTE | 2020-11-27 13:10 | IPNPDOC ---
Date Seen The patient was seen on 11/27/20. Progress Note SUBJECTIVE: Upper GI series: delayed emptying. Per surgery, will attempt to clamp tube and she how she does. If does well, CLD but if not may need to c/w NG and start IV nutrition, surgery. Patient denies chest pain, shortness of breath, nausea, abdominal pain. OBJECTIVE: PHYSICAL EXAMINATION: VITAL SIGNS: Please see below GENERAL APPEARANCE: NAD, resting in bed, AAOx3 HEENT: NG tube in place, secured. NECK: symmetrical LUNGS: CTAB, No W/R/R HEART: S1S2 +, no M/R/G ABDOMEN: thin, Soft. Nontender. BS + 4 quadrants EXTREMITIES: No peripheral edema. NEURO: CN 2-12 intact Psych: Mood and affected appropriate LABS: Please see below IMAGING: Upper GI series: Delayed emptying of the stomach. Imaging obtained 1 hour after study demonstrated an extremely small amount of contrast in the proximal small bowel. The pylorus and duodenal bulb are poorly seen. A/P: Gastric outlet obstruction -NG tube in place, clamped this AM -Upper GI series above -Endoscopy: narrowing seen at area of pyloroplasty. -Per surgery, will attempt to clamp tube and she how she does. If does well, CLD but if not may need to c/w NG and start IV nutrition, surgery -Pain control PRN -Surgery consulted, f/u recommendations GI px -PPI DVT px -Heparin SC DISPOSITION: F/u Surgery (Dr. Edouard's) recommendations. Plan is home when medically improved. VS, I&O, 24H, Fishbone Vital Signs/I&O Vital Signs Date Time Temp Pulse Resp B/P (MAP) Pulse Ox O2 Delivery O2 Flow Rate FiO2 11/27/20 06:00 98.6 78 16 127/65 (85) 97 Room Air I&O- Last 24 Hours up to 6 AM 11/27/20 06:00 Intake Total 2400 ml Output Total 1600 ml Balance 800 ml Laboratory Data 24H LABS Laboratory Tests 2 11/27/20 05:01: Nucleated Red Blood Cells % (auto) 0.0, Anion Gap 10, Glomerular Filtration Rate > 60.0, Calcium Level 8.9, Total Bilirubin 0.6, Aspartate Amino Transf (AST/SGOT) 14, Alanine Aminotransferase (ALT/SGPT) 32, Alkaline Phosphatase 62, Total Protein 6.7, Albumin 3.4, Albumin/Globulin Ratio 1.0L CBC/BMP Laboratory Tests 11/27/20 05:01 Current Medications Current Medications Medications (Trade) Dose Ordered Sig/Niranjan Route PRN Reason Start Time Stop Time Status Last Admin Dose Admin Acetaminophen (Tylenol Tab) 650 mg Q4HP PRN PO MILD PAIN or TEMP > 100.4 11/27/20 12:00 Dextrose/Sodium Chloride 1,000 ml @ 90 mls/hr Q11H7M IV 11/23/20 06:45 11/23/20 09:04 DC 11/23/20 07:29 Dextrose/Sodium Chloride 1,000 ml @ 100 mls/hr Q10H IV 11/24/20 08:30 11/27/20 12:06 DC 11/26/20 22:08 Heparin Sodium (Porcine) (Heparin) 5,000 units Q12H SQ 11/24/20 21:00 Home Med (Med Rec Complete!) ASDIRECTED XX 11/23/20 08:00 11/23/20 07:48 DC Hydromorphone HCl (Dilaudid) 0.5 mg Q3HP PRN IV MILD PAIN (PS 1-4) 11/23/20 06:30 11/27/20 12:03 DC Hydromorphone HCl (Dilaudid) 0.8 mg Q3HP PRN IV MODERATE/SEVERE PAIN (PS 5-10) 11/23/20 06:30 11/27/20 12:03 DC Metoclopramide HCl (Reglan) 5 mg ACHS PO 11/27/20 12:00 Ondansetron HCl (ZOFRAN INJection) 2 mg Q4HP PRN IV NAUSEA OR VOMITING 11/23/20 06:45 Pantoprazole Sodium (Protonix) 40 mg BID IV 11/23/20 21:00 11/27/20 08:43 Phenol (Chloraseptic [place]) 1 spray Q2HP PRN MT SORE THROAT 11/26/20 12:15 11/26/20 22:09 Potassium Chloride 10 meq/ IV Miscellaneous Supplies 100 ml @ 100 mls/hr Q1H IV 11/25/20 09:00 11/25/20 11:59 DC 11/25/20 11:53 Potassium Chloride 10 meq/ IV Miscellaneous Supplies 100 ml @ 100 mls/hr Q1H IV 11/27/20 09:00 11/27/20 11:45 DC 11/27/20 09:41 Potassium Chloride/Dextrose/ Sod Cl 1,000 ml @ 100 mls/hr Q10H IV 11/23/20 09:15 11/24/20 08:28 DC 11/24/20 06:12 Potassium Chloride/Dextrose/ Sod Cl 1,000 ml @ 100 mls/hr Q10H IV 11/27/20 11:45 11/27/20 11:56 Sodium Chloride 1,000 ml @ 90 mls/hr Q11H7M IV 11/23/20 01:01 11/23/20 06:41 DC 11/23/20 04:07 Allergies Coded Allergies: No Known Allergies (Unverified , 05/05/20) Calra Lerma MD Nov 27, 2020 13:10
[2020-11-27] MEDS: METOCLOPRAMIDE 5 MG TAB PO SCH ×3 (13:20→20:46)
[2020-11-27 14:00] VITALS: BP 122/56
--- NOTE | 2020-11-27 18:38 | IPN ---
PROGRESS NOTE DATE: 11/27/2020 HISTORY: The patient was admitted this past Monday with a recurrence of gastric outlet obstruction. A upper endoscopy two days ago showed some narrowing of her pyloroplasty, but I was able to get the scope through without significant difficulty. A contrast swallow yesterday showed delayed emptying, but there was some passage of contrast through into the duodenum. Her NG tube was clamped overnight; and when un-clamped and put to suction for half an hour to an hour this morning, she drained only 50 ml of very lightly bilious fluid. She denies any pain. Vital signs show that she has been afebrile with a pulse in the 70s to 80s and a good blood pressure. Intake and output show that yesterday she had 2400 in with 1700 out. PHYSICAL EXAMINATION: The patient is awake and alert. She denies any abdominal pain. Heart and lung examination is unremarkable. The abdomen is thin and flat and soft and nontender. LABORATORY STUDIES: Show that her white count is 6 with a hemoglobin of 12, hematocrit 34 and platelet count of 221,000, Her chemistry profile shows a sodium of 143, potassium 3.3, chloride 104, Co2 of 29, BUN of 6, creatinine 0.5 and a glucose of 111. Liver function tests are normal. Protein and albumin are still within normal limits. IMPRESSION: The patient is doing very well. She had no difficulty overnight with her NG tube clamped and had only a minimal residual identified this morning. PLAN: I will remove her NG tube and this accomplished easily. I will start her on some clear liquids. If she can tolerate adequate clear liquids without a recurrence of nausea or vomiting or abdominal pain, then she could conceivably be discharged home I counseled her that she will require additional surgery. I do not believe that we are going to be a lasting good result out of trying to balloon dilate her pyloroplasty. I have recommended that we plan on proceeding with a gastrojejunostomy for gastric drainage. I will try to schedule this as soon as possible. If this can be done very soon, we may be able to keep her in the hospital until the surgery. If it will be later, then it would be reasonable for her to be discharged on clear liquids as long as she is tolerating these well and return for the surgery.
[2020-11-27 22:00] VITALS: BP 114/57
[2020-11-28 06:00] VITALS: BP 114/57
[2020-11-28 06:59] LABS: HEMATOCRIT 33.2 % (36.0-47.0); HEMOGLOBIN 11.1 g/dl (12.0-15.5); MEAN CORPUSCULAR HEMOGLOBIN 29.8 pg (27.0-33.0); MEAN CORPUSCULAR HGB CONC 33.4 g/dl (32.0-36.5); PLATELET COUNT, AUTOMATED 209 10^3/uL (150-450); RED BLOOD COUNT 3.73 10^6/uL (4.00-5.40); WHITE BLOOD COUNT 3.7 10^3/uL (4.0-10.0)
[2020-11-28 07:30] LABS: ALBUMIN 3.2 GM/DL (3.2-5.2); ALT/SGPT 26 U/L (12-78); BILIRUBIN,TOTAL 0.5 MG/DL (0.2-1.0); BLOOD UREA NITROGEN 6 MG/DL (7-18); CALCIUM LEVEL 8.8 MG/DL (8.5-10.1); CARBON DIOXIDE LEVEL 29 MEQ/L (21-32); CHLORIDE LEVEL 107 MEQ/L (98-107); CREATININE FOR GFR 0.54 MG/DL (0.55-1.30); GLOMERULAR FILTRATION RATE > 60.0 (>51); GLUCOSE, FASTING 107 MG/DL (70-100); POTASSIUM SERUM 4.2 MEQ/L (3.5-5.1); SODIUM LEVEL 143 MEQ/L (136-145); TOTAL PROTEIN 6.1 GM/DL (6.4-8.2)
[2020-11-28] MEDS: PANTOPRAZOLE 40MG TAB (PROTONIX) PO SCH ×2 (08:05→20:00)
[2020-11-28] MEDS: HEPARIN SOD (PORCINE) 5000UNITS/ML 1ML VIAL/SYRINGE SQ SCH ×2 (08:05→19:59)
[2020-11-28] MEDS: METOCLOPRAMIDE 5 MG TAB PO SCH ×4 (08:05→20:00)
[2020-11-28] MEDS: D5W/0.45% SODIUM CHLORIDE 1,000 ML IV SCH (10:13)
--- NOTE | 2020-11-28 11:37 | IPN ---
PROGRESS NOTE DATE: 11/28/2020 SUBJECTIVE: The patient states that she is not having any abdominal pain. No nausea, no vomiting. Tolerating clears. Had a bowel movement this morning and otherwise feeling better overall. She has been tolerating clears, but she states that she has been really kind of sipping on it and not taking a great deal of this, but she is not getting nauseated either when she takes it in. PHYSICAL EXAMINATION: ABDOMEN: Soft and pretty much scaphoid at this time. Non-distended and nontender. IMPRESSION/PLAN: Patient has evidence of gastric emptying problems with chronically distended stomach over time. She had a vagotomy and pyloroplasty, but it really has not made a significant improvement of her emptying per se and thus, at this point, the plan is to keep her on clear liquids and possibly discharge her home on some clear liquids and proceed with operation later on in the week, depending on her overall improvement/status. We will see how she does over the next 24 hours and making sure she is taking adequate oral intake and if she is, then I feel that we can probably discharge her home with follow up in Dr. Edouard's office on Monday for discussion of the operative intervention.
[2020-11-28 14:00] VITALS: BP 114/61
--- NOTE | 2020-11-28 15:05 | IPNPDOC ---
Date Seen The patient was seen on 11/28/20. Progress Note SUBJECTIVE: Per surgery, will see how she does on CLD and see if she tolerates. If she does then possible d/c home to f/u with Dr. Edouard. Patient denies chest pain, shortness of breath, nausea, abdominal pain. OBJECTIVE: PHYSICAL EXAMINATION: VITAL SIGNS: Please see below GENERAL APPEARANCE: NAD, resting in bed, AAOx3 HEENT: EOMI, PERRLA NECK: symmetrical LUNGS: CTAB, No W/R/R HEART: S1S2 +, no M/R/G ABDOMEN: thin, Soft. Nontender. BS + 4 quadrants EXTREMITIES: No peripheral edema. NEURO: CN 2-12 intact Psych: Mood and affected appropriate LABS: Please see below IMAGING: Upper GI series: Delayed emptying of the stomach. Imaging obtained 1 hour after study demonstrat ed an extremely small amount of contrast in the proximal small bowel. The pylorus and duodenal bulb are poorly seen. A/P: Gastric outlet obstruction, hx of vagotomy and pyloroplasty -NG tube in place, clamped this AM -Upper GI series above -Endoscopy: narrowing seen at area of pyloroplasty. -CLD and will see if she tolerates. If she does then possible d/c home to f/u with Dr. Edouard. -Pain control PRN -F/u surgery recommendations GI px -PPI DVT px -Heparin SC DISPOSITION: F/u Surgery recommendations. Plan is home when medically improved. VS, I&O, 24H, Fishbone Vital Signs/I&O Vital Signs Date Time Temp Pulse Resp B/P (MAP) Pulse Ox O2 Delivery O2 Flow Rate FiO2 11/28/20 06:00 98.2 80 17 114/57 (76) 98 Room Air I&O- Last 24 Hours up to 6 AM 11/28/20 06:00 Intake Total 2670 ml Output Total 1700 ml Balance 970 ml Laboratory Data 24H LABS Laboratory Tests 2 11/28/20 06:00: Nucleated Red Blood Cells % (auto) 0.0, Anion Gap 7L, Glomerular Filtration Rate > 60.0, Calcium Level 8.8, Total Bilirubin 0.5, Aspartate Amino Transf (AST/SGOT) 12, Alanine Aminotransferase (ALT/SGPT) 26, Alkaline Phosphatase 52, Total Protein 6.1L, Albumin 3.2, Albumin/Globulin Ratio 1.1L CBC/BMP Laboratory Tests 11/28/20 06:00 Current Medications Current Medications Medications (Trade) Dose Ordered Sig/Niranjan Route PRN Reason Start Time Stop Time Status Last Admin Dose Admin Acetaminophen (Tylenol Tab) 650 mg Q4HP PRN PO MILD PAIN or TEMP > 100.4 11/27/20 12:00 Dextrose/Sodium Chloride 1,000 ml @ 50 mls/hr Q20H IV 11/28/20 09:30 11/28/20 10:13 Dextrose/Sodium Chloride 1,000 ml @ 90 mls/hr Q11H7M IV 11/23/20 06:45 11/23/20 09:04 DC 11/23/20 07:29 Dextrose/Sodium Chloride 1,000 ml @ 100 mls/hr Q10H IV 11/24/20 08:30 11/27/20 12:06 DC 11/26/20 22:08 Heparin Sodium (Porcine) (Heparin) 5,000 units Q12H SQ 11/24/20 21:00 Home Med (Med Rec Complete!) ASDIRECTED XX 11/23/20 08:00 11/23/20 07:48 DC Hydromorphone HCl (Dilaudid) 0.5 mg Q3HP PRN IV MILD PAIN (PS 1-4) 11/23/20 06:30 11/27/20 12:03 DC Hydromorphone HCl (Dilaudid) 0.8 mg Q3HP PRN IV MODERATE/SEVERE PAIN (PS 5-10) 11/23/20 06:30 11/27/20 12:03 DC Metoclopramide HCl (Reglan) 5 mg ACHS PO 11/27/20 12:00 11/28/20 12:08 Ondansetron HCl (ZOFRAN INJection) 2 mg Q4HP PRN IV NAUSEA OR VOMITING 11/23/20 06:45 Pantoprazole Sodium (Protonix) 40 mg BID IV 11/23/20 21:00 11/28/20 07:45 DC 11/27/20 20:46 Pantoprazole Sodium (Protonix) 40 mg BID PO 11/28/20 09:00 11/28/20 08:05 Phenol (Chloraseptic [place]) 1 spray Q2HP PRN MT SORE THROAT 11/26/20 12:15 11/26/20 22:09 Potassium Chloride 10 meq/ IV Miscellaneous Supplies 100 ml @ 100 mls/hr Q1H IV 11/25/20 09:00 11/25/20 11:59 DC 11/25/20 11:53 Potassium Chloride 10 meq/ IV Miscellaneous Supplies 100 ml @ 100 mls/hr Q1H IV 11/27/20 09:00 11/27/20 11:45 DC 11/27/20 09:41 Potassium Chloride/Dextrose/ Sod Cl 1,000 ml @ 100 mls/hr Q10H IV 11/23/20 09:15 11/24/20 08:28 DC 11/24/20 06:12 Potassium Chloride/Dextrose/ Sod Cl 1,000 ml @ 100 mls/hr Q10H IV 11/27/20 11:45 11/28/20 09:33 DC 11/27/20 21:02 Sodium Chloride 1,000 ml @ 90 mls/hr Q11H7M IV 11/23/20 01:01 11/23/20 06:41 DC 11/23/20 04:07 Allergies Coded Allergies: No Known Allergies (Unverified , 05/05/20) Carla Lerma MD Nov 28, 2020 15:05
[2020-11-28 22:00] VITALS: BP 130/62
[2020-11-29] MEDS: D5W/0.45% SODIUM CHLORIDE 1,000 ML IV SCH (02:39)
[2020-11-29 06:00] VITALS: BP 127/75
[2020-11-29 07:10] LABS: HEMATOCRIT 33.4 % (36.0-47.0); HEMOGLOBIN 11.3 g/dl (12.0-15.5); MEAN CORPUSCULAR HEMOGLOBIN 29.9 pg (27.0-33.0); MEAN CORPUSCULAR HGB CONC 33.8 g/dl (32.0-36.5); MEAN CORPUSCULAR VOLUME 88.4 fl (80.0-96.0); PLATELET COUNT, AUTOMATED 220 10^3/uL (150-450); RED BLOOD COUNT 3.78 10^6/uL (4.00-5.40); WHITE BLOOD COUNT 3.9 10^3/uL (4.0-10.0)
[2020-11-29 07:41] LABS: ALBUMIN 3.2 GM/DL (3.2-5.2); ALT/SGPT 25 U/L (12-78); BILIRUBIN,TOTAL 0.5 MG/DL (0.2-1.0); BLOOD UREA NITROGEN 7 MG/DL (7-18); CALCIUM LEVEL 8.9 MG/DL (8.5-10.1); CARBON DIOXIDE LEVEL 32 MEQ/L (21-32); CHLORIDE LEVEL 103 MEQ/L (98-107); CREATININE FOR GFR 0.56 MG/DL (0.55-1.30); GLOMERULAR FILTRATION RATE > 60.0 (>51); GLUCOSE, FASTING 90 MG/DL (70-100); POTASSIUM SERUM 3.4 MEQ/L (3.5-5.1); SODIUM LEVEL 144 MEQ/L (136-145); TOTAL PROTEIN 6.3 GM/DL (6.4-8.2)
[2020-11-29] MEDS: METOCLOPRAMIDE 5 MG TAB PO SCH (08:28)
[2020-11-29] MEDS: PANTOPRAZOLE 40MG TAB (PROTONIX) PO SCH (08:28)
[2020-11-29] MEDS ORDERED: METO5TAB2 PO (08:41)
[2020-11-29] MEDS ORDERED: ACET1TAB55 PO (08:41)
[2020-11-29] MEDS: HEPARIN SOD (PORCINE) 5000UNITS/ML 1ML VIAL/SYRINGE SQ SCH (09:00)
--- NOTE | 2020-11-29 15:50 | DS.PDOC ---
Discharge Summary General Date of Admission Nov 23, 2020 at 01:07 Date of Discharge 11/29/20 Attending Physician: Carla Lerma MD Discharge Summary HISTORY OF PRESENT ILLNESS: Patient is a 49 yr old F who underwent lap truncal vagotomy with pyloroplasty in September 2020 to manage pyloric stenosis 2/2 PUD with gastric outlet obstruction. On 11/20/20 in evening after eating dinner she had an abnormal sensation in her abdomen and felt like she would not be able to digest her food. The next day she developed left mid & lower abdominal discomfort and nausea; she didnt eat the whole day because she felt to bloated, but she did have a BM. On on 11/22/20 her abdomen begun to feel more tight and she vomited brow fluid which she describes as being smooth and thick in texture. She didnt notice if it was foul in smelling. She denies having fevers but had an episode of chill s and sweating which she attributes to not eating for the last few days. She then went to [facility] to be evaluated further. Work-up at [facility]: WBC 7.0, Hg 14.5, Plt 274, Na 138, K 3.7,Cl 94, CO2 30, BUN 24, Cr 0.7, Glucose 130, Lipase 48, lactic acid 2.8, CT abd/pelvis Marked fluid distention. Findings consistent with proximal duodenal c-loop obstruction possibly due to volvulus and an underlying mass for a lead point is not excluded. Mild hiatal hernia. Providers at [place] requested transfer for a higher level of care on 11/23/20. HOSPITAL COURSE: NG tube was placed on arrival and patient was kept NPO upon evaluation by surgery. Endoscopy was done on 11/25/20, surgery was able to advance the scope through the area of the pyloroplasty, but it did appear somewhat angled and narrowed. She has a quite dilated stomach. It may well be that her pyloroplasty is just not going to be adequate. Her gastric motility is probably diminished following her vagotomy as well. Patient has recurrence of a gastric outlet obstruction, despite her pyloroplasty about a month ago. NG tube was later clamped and she tolerated a CLD well over the past 24 hours. Per surgery, she was cleared for discharge today to continue CLD as o/p. She has f/u with Dr. Edouard this week and they will schedule for a gastrojejunostomy for better gastric drainage. At time of discharge, patient denies chest pain, n/v/d, fevers, chills. PAST MEDICAL/ SURGICAL HISTORY: PUD gastric outlet obstruction Tubal ligation Laproscopic truncal vagotomy with pyloroplasty SOCIAL HISTORY: Quit smoking in December of 2019. Doesnt drink or use recreational drugs dependent FAMILY HISTORY: CHF, CKD, HTN, DM ALLERGIES: Please see below. DISCHARGE MEDICATIONS: Please see below. PHYSICAL EXAMINATION: VITAL SIGNS: Please see below GENERAL APPEARANCE: NAD, resting in bed, AAOx3 HEENT: EOMI, PERRLA NECK: symmetrical LUNGS: CTAB, No W/R/R HEART: S1S2 +, no M/R/G ABDOMEN: thin, Soft. Nontender. BS + 4 quadrants EXTREMITIES: No peripheral edema. NEURO: CN 2-12 intact Psych: Mood and affected appropriate LABS: Please see below IMAGING: Upper GI series: Delayed emptying of the stomach. Imaging obtained 1 hour after study demonstrated an extremely small amount of contrast in the proximal small bowel. The pylorus and duodenal bulb are poorly seen. A/P: Gastric outlet obstruction, hx of vagotomy and pyloroplasty -Tolerating CLD well, ensure clear TID with meals -D/c today to f/u with Dr. Edouard later this week. PUD -PPI BID DISPOSITION: Discharged home on CLD, Ensure clear TId with meals to f/u with Dr. Edouard this week. TIME SPENT ON DISCHARGE: Greater than 30 minutes. Vital Signs/I&Os Vital Signs Date Time Temp Pulse Resp B/P (MAP) Pulse Ox O2 Delivery O2 Flow Rate FiO2 11/29/20 06:00 98.0 81 18 127/75 (92) 97 Room Air I&O- Last 24 Hours up to 6 AM 11/29/20 06:00 Intake Total 3330 ml Output Total 2400 ml Balance 930 ml Laboratory Data Labs 24H Laboratory Tests 2 11/29/20 06:23: Nucleated Red Blood Cells % (auto) 0.0, Anion Gap 9, Glomerular Filtration Rate > 60.0, Calcium Level 8.9, Total Bilirubin 0.5, Aspartate Amino Transf (AST/SGOT) 13, Alanine Aminotransferase (ALT/SGPT) 25, Alkaline Phosphatase 55, Total Protein 6.3L, Albumin 3.2, Albumin/Globulin Ratio 1.0L CBC/BMP Laboratory Tests 11/29/20 06:23 Discharge Medications Scheduled Metoclopramide HCl (Metoclopramide HCl) 5 Mg Tablet, 5 MG PO ACHS Pantoprazole Sodium (Pantoprazole Sodium) 40 Mg Tablet.dr, 40 MG PO BID, (Reported) Scheduled PRN Acetaminophen (Acetaminophen) 325 Mg Tablet, 650 MG PO Q6HP PRN for MILD PAIN or TEMP > 100.4 Allergies Coded Allergies: No Known Allergies (Unverified , 05/05/20) Current Medications Current Medications Medications (Trade) Dose Ordered Sig/Niranjan Route PRN Reason Start Time Stop Time Status Last Admin Dose Admin Acetaminophen (Tylenol Tab) 650 mg Q4HP PRN PO MILD PAIN or TEMP > 100.4 11/27/20 12:00 11/29/20 12:38 DC Dextrose/Sodium Chloride 1,000 ml @ 50 mls/hr Q20H IV 11/28/20 09:30 11/29/20 12:38 DC 11/29/20 02:39 Dextrose/Sodium Chloride 1,000 ml @ 90 mls/hr Q11H7M IV 11/23/20 06:45 11/23/20 09:04 DC 11/23/20 07:29 Dextrose/Sodium Chloride 1,000 ml @ 100 mls/hr Q10H IV 11/24/20 08:30 11/27/20 12:06 DC 11/26/20 22:08 Heparin Sodium (Porcine) (Heparin) 5,000 units Q12H SQ 11/24/20 21:00 11/29/20 12:38 DC Home Med (Med Rec Complete!) ASDIRECTED XX 11/23/20 08:00 11/23/20 07:48 DC Hydromorphone HCl (Dilaudid) 0.5 mg Q3HP PRN IV MILD PAIN (PS 1-4) 11/23/20 06:30 11/27/20 12:03 DC Hydromorphone HCl (Dilaudid) 0.8 mg Q3HP PRN IV MODERATE/SEVERE PAIN (PS 5-10) 11/23/20 06:30 11/27/20 12:03 DC Metoclopramide HCl (Reglan) 5 mg ACHS PO 11/27/20 12:00 11/29/20 12:38 DC 11/29/20 08:28 Ondansetron HCl (ZOFRAN INJection) 2 mg Q4HP PRN IV NAUSEA OR VOMITING 11/23/20 06:45 11/29/20 12:38 DC Pantoprazole Sodium (Protonix) 40 mg BID IV 11/23/20 21:00 11/28/20 07:45 DC 11/27/20 20:46 Pantoprazole Sodium (Protonix) 40 mg BID PO 11/28/20 09:00 11/29/20 12:38 DC 11/29/20 08:28 Phenol (Chloraseptic [place]) 1 spray Q2HP PRN MT SORE THROAT 11/26/20 12:15 11/29/20 12:38 DC 11/26/20 22:09 Potassium Chloride 10 meq/ IV Miscellaneous Supplies 100 ml @ 100 mls/hr Q1H IV 11/25/20 09:00 11/25/20 11:59 DC 11/25/20 11:53 Potassium Chloride 10 meq/ IV Miscellaneous Supplies 100 ml @ 100 mls/hr Q1H IV 11/27/20 09:00 11/27/20 11:45 DC 11/27/20 09:41 Potassium Chloride/Dextrose/ Sod Cl 1,000 ml @ 100 mls/hr Q10H IV 11/23/20 09:15 11/24/20 08:28 DC 11/24/20 06:12 Potassium Chloride/Dextrose/ Sod Cl 1,000 ml @ 100 mls/hr Q10H IV 11/27/20 11:45 11/28/20 09:33 DC 11/27/20 21:02 Sodium Chloride 1,000 ml @ 90 mls/hr Q11H7M IV 11/23/20 01:01 11/23/20 06:41 DC 11/23/20 04:07 Carla Lerma MD Nov 29, 2020 15:50
== END 2020-11-29 12:17 | disposition home or self-care (01) | DRG 382 ==
LOC: M MSPAV 11-23 01:07
PROVIDERS: ADMIT Internal Medicine; ATTEND Internal Medicine
PROC: 0DJ08ZZ Inspection of Upper Intestinal Tract, Via Natural or Artificial Opening Endoscopic (ICD-10-PCS; principal; 2020-11-25 14:30)
DX: K31.1 Adult hypertrophic pyloric stenosis (principal); K20.90 Esophagitis, unspecified without bleeding; Z87.891 Personal history of nicotine dependence; Z79.899 Other long term (current) drug therapy; Z98.890 Other specified postprocedural states

== ENCOUNTER → 2020-11-30 | Outpatient (CLI) | payer OTHER ==
[~2020-11-30] MED LIST changes: +ACET1TAB55 PO; +METO5TAB2 PO
== END ==
LOC: M LABSMTC 12:43
PROVIDERS: ATTEND Anesthesiology
DX: Z01.812 Encounter for preprocedural laboratory examination (principal); Z20.822 Contact with and (suspected) exposure to COVID-19

== ENCOUNTER 2020-12-03 06:12 | Inpatient (IN) | payer OTHER ==
[~2020-12-03] VITALS: Ht 157.5 cm; Wt 48.9 kg
[2020-12-03] VITALS (8 sets, daily range): BP systolic 111–125; BP diastolic 60–69
[2020-12-03] MEDS ORDERED: ceFAZolin SOD 2 GM in IV 1 EA IV ONE (07:00)
[2020-12-03] MEDS ORDERED: LR 1,000 ML IV ONE (07:00)
[2020-12-03] MEDS ORDERED: BUPIVACAINE HCL 0.25% 30ML VIAL As Ordered ONE (07:15)
[2020-12-03] MEDS ORDERED: propofoL 200 MG/20 ML VIAL As Ordered ONE (07:18)
[2020-12-03] MEDS ORDERED: dexameTHASONE 4 MG/ML 1ML VIAL (J1100 PER 1MG) As Ordered ONE (07:18)
[2020-12-03] MEDS ORDERED: ROCURONIUM BROMIDE 50 MG/5 ML VIAL As Ordered ONE (07:18)
[2020-12-03] MEDS ORDERED: HYDROmorphone HCL 2 MG/ML 1ML VIAL (J1170) As Ordered ONE (07:18)
[2020-12-03] MEDS ORDERED: SUGAMMADEX SODIUM 500 MG/5 ML VIAL (BRIDION) As Ordered ONE (07:18)
[2020-12-03] MEDS ORDERED: LIDOCAINE 2% 100MG/5ML SDV (FOR ANES.) As Ordered ONE (07:18)
[2020-12-03] MEDS ORDERED: KETOROLAC 60MG 2ML VIAL As Ordered ONE (07:18)
[2020-12-03] MEDS ORDERED: ONDANSETRON 4MG/2ML VIAL As Ordered ONE ×2 (07:18→12:13)
[2020-12-03] MEDS ORDERED: MIDAZOLAM INJ 2MG/2ML VIAL (J2250 PER 1MG) As Ordered ONE (07:19)
[2020-12-03] MEDS ORDERED: fentaNYL 100 MCG/2 ML INJECTION (J3010) As Ordered ONE (07:19)
[2020-12-03] MEDS ORDERED: ACETAMINOPHEN 1000MG 100ML IV BTL (OFIRMEV) (J0131 PER 10MG) As Ordered ONE (08:16)
[2020-12-03] MEDS: ONDANSETRON 4MG/2ML VIAL IV PRN ×2 (12:16→22:28)
[2020-12-03] MEDS: LR 1,000 ML IV SCH ×2 (12:23→21:58)
[2020-12-03] MEDS ORDERED: MORPHINE 2 MG/ML 1ML VIAL (J2270) IV PRN (12:30)
[2020-12-03] MEDS ORDERED: METOCLOPRAMIDE INJ 10MG/2ML VIAL (J2765 PER 1) As Ordered ONE (12:39)
[2020-12-03] MEDS ORDERED: METOCLOPRAMIDE INJ 10MG/2ML VIAL (J2765 PER 1) IV STA (12:42)
[2020-12-03] MEDS ORDERED: fentaNYL 100 MCG/2 ML INJECTION (J3010) IV PRN (12:45)
[2020-12-03] MEDS ORDERED: LR 1,000 ML IV SCH (12:45)
[2020-12-03] MEDS ORDERED: HYDROMORPHONE HCL 0.5 MG/ 0.5 ML SYRINGE (J1170 PER 1) IV PRN (12:45)
[2020-12-03] MEDS ORDERED: oxyCODONE 5MG TAB PO PRN (12:45)
[2020-12-03] MEDS ORDERED: ONDANSETRON 4MG/2ML VIAL IV PRN (12:45)
[2020-12-03] MEDS: ceFAZolin SOD 1 GM in D5W MINI-BAG PLUS 50 ML IV SCH (16:38)
[2020-12-03] MEDS ORDERED: KETOROLAC 30 MG/ML 1ML VIAL IV PRN (18:00)
[2020-12-03] MEDS: PANTOPRAZOLE 40MG VIAL (C9113 PER 1) IV SCH (21:20)
[2020-12-04] MEDS: ceFAZolin SOD 1 GM in D5W MINI-BAG PLUS 50 ML IV SCH (00:36)
[2020-12-04 02:00] VITALS: BP 122/69
[2020-12-04] MEDS: LR 1,000 ML IV SCH ×2 (05:56→13:17)
[2020-12-04 06:00] VITALS: BP 120/67
[2020-12-04 08:04] LABS: BASO % 0.3 % (0.0-1.0); EOS % 0.4 % (0.0-3.0); HEMATOCRIT 31.5 % (36.0-47.0); HEMOGLOBIN 10.4 g/dl (12.0-15.5); LYMPH # 1.2 10^3/uL (1.5-5.0); LYMPH % 15.8 % (24.0-44.0); MEAN CORPUSCULAR HEMOGLOBIN 29.2 pg (27.0-33.0); MEAN CORPUSCULAR VOLUME 88.5 fl (80.0-96.0); MONO # 0.6 10^3/uL (0.0-0.8); MONO % 8.2 % (0.0-5.0); NEUTROPHILS # 5.6 10^3/uL (1.5-8.5); NEUTROPHILS % 74.9 % (36.0-66.0); PLATELET COUNT, AUTOMATED 259 10^3/uL (150-450); RED BLOOD COUNT 3.56 10^6/uL (4.00-5.40); WHITE BLOOD COUNT 7.4 10^3/uL (4.0-10.0)
[2020-12-04 08:33] LABS: BLOOD UREA NITROGEN 11 MG/DL (7-18); CALCIUM LEVEL 8.1 MG/DL (8.5-10.1); CARBON DIOXIDE LEVEL 21 MEQ/L (21-32); CHLORIDE LEVEL 107 MEQ/L (98-107); CREATININE FOR GFR 0.54 MG/DL (0.55-1.30); GLOMERULAR FILTRATION RATE > 60.0 (>51); GLUCOSE, FASTING 70 MG/DL (70-100); POTASSIUM SERUM 3.4 MEQ/L (3.5-5.1); SODIUM LEVEL 139 MEQ/L (136-145)
[2020-12-04] MEDS: PANTOPRAZOLE 40MG VIAL (C9113 PER 1) IV SCH ×2 (08:55→21:13)
[2020-12-04 10:00] VITALS: BP 112/69
[2020-12-04] MEDS ORDERED: ACETAMINOPHEN 325 MG/10.15 ML UDC PO PRN (10:30)
--- NOTE | 2020-12-04 13:04 | RO ---
OPERATIVE NOTE DATE OF OPERATION: 12/03/2020 PREOPERATIVE DIAGNOSIS: Recurrent gastric outlet obstruction. POSTOPERATIVE DIAGNOSIS: Recurrent gastric outlet obstruction. PROCEDURE: Robotic-assisted laparoscopic Felix-en-Y gastrojejunostomy. SURGEON: Milad Edouard MD BUSINESS CONTINUITY MANAGER: LOBO Barclay. Cinthia's assistance was necessary in managing the robotic instrument exchanges, passage of needles and recovery of specimens as well as closure of the incisions. ANESTHESIA: General. INDICATIONS FOR THE PROCEDURE: The patient is a 49-year-old woman with a long history of peptic ulcer disease leading to gastric outlet obstruction. She had presented with a complete obstruction in about April of 2020. This improved somewhat with medical therapy but then she had persistent obstructive symptoms. She underwent a robotic-assisted pyloroplasty with truncal vagotomy on October 20, 2020. She initially did quite well but then returned to the hospital a month later with evidence of recurrent outlet obstruction. Endoscopy showed some inflammation in the area of her pyloroplasty with significant angulation in that area. She is now for a gastrojejunostomy for gastric drainage. DESCRIPTION OF PROCEDURE: The patient was brought to the operating room and placed on the table in a supine position. She was placed under general endotracheal anesthesia. An orogastric tube was inserted and approximately 1600 mL of murky, brownish fluid with a suggestion of a red tint and/or coffee ground appearance was immediately withdrawn. Her stomach which had been palpable in her left mid-abdomen was apparently completely decompressed after the fluid was removed. A Fair catheter was inserted and TEDs and sequentials were utilized. The patient's pressure points were padded. Her abdomen was prepped and draped in a sterile fashion. Initial entry into the abdomen was in the right upper quadrant through a trocar site from her previous surgery. 1/4% Marcaine was infiltrated at each of the trocar sites as needed. A short transverse incision was made and a Veress needle was inserted. After a positive hanging drop test, the abdomen was inflated with carbon dioxide gas. A 5 mm Visiport was placed over the scope and advanced through the abdominal wall without difficulty. Initial examination showed a few adhesions to the area of the pyloroplasty. The liver appeared normal. Other loops of the small and large bowel appeared normal. The stomach appeared to be completely decompressed by the orogastric tube. I then marked the sites for four robotic trocars across the lower abdomen. In the right lower quadrant, a site was made for the 12 mm port as this would be our stapler port. An 8 mm port was placed just to the right of the midline and two were placed in the left lower quadrant. The 12 mm port was placed first and then the three 8s were inserted. The patient was tilted to a slight Trendelenburg position. The patient cart of the [employer] XI robot was then brought into position. The endoscope arm was attached to the 8 mm medial right lower quadrant port. Targeting took place in the area of the ligament of Treitz. The additional robotic arms were then docked to the remaining ports. A fenestrated bipolar was placed in the 12 mm site. The SynchroSeal and a grasping retractor were placed in the left lower quadrant ports. I then moved to the control console to proceed with the operation. Initial inspection showed that the stomach was completely decompressed. There was a small amount of free serous fluid within the pelvis and upper abdomen but this was fairly minimal. The liver appeared normal. The omentum which was quite thin was elevated above the transverse colon. The small bowel at the ligament of Treitz was identified and traced distally approximately 30-40 cm and all appeared healthy. Initially the greater omentum was elevated and the omentum was freed from the transverse colon. Dissection was continued to enter the lesser sac and expose the greater curve and posterior wall of the stomach. Some filmy attachments in this area were divided to clearly expose the posteroinferior wall of the stomach at its inferior most point. I then returned to the proximal jejunum. The jejunum was elevated and an opening was created through the mesentery approximately 20 cm distal to the ligament of Treitz. In the course of opening this, it was that a small segment of the jejunum had been devascularized as it turned quite dusky. The bowel was transected with a 60 cm stapler with a blue load. The dissection of the mesentery was continued to provide some additional freedom for mobilization of the distal segment as the Felix limb to come to the stomach. An opening was created through the transverse mesocolon. The dusky end of the small bowel was resected with a second firing of a blue load with a 60 mm stapler. The distal portion of the jejunum was then delivered through the transverse mesocolon into the lesser sac to lie posterior to the stomach. An anastomosis was then created between the stomach and the small bowel. A traction suture of 2-0 Vicryl was placed in the greater curve of the stomach to allow this to be elevated. A small gastrotomy was created with the cauterizing scissors and then opening was created into the antimesenteric surface of the small bowel approximately 8 cm from the stapled end of the bowel. A 60 mm stapler with a green load was used to create the initial anastomosis. The residual opening was then closed with a running suture of absorbable 2-0 V-Loc. This was carried in one layer across the closure and then sutured back in the opposite direction to perform a second inverting closure with seromuscular bites. Several additional 3-0 Vicryl sutures were placed to reinforce one small area. The traction suture was removed from the stomach. Several 3-0 silk sutures were placed to suture the edge of the transverse mesocolon to the small bowel to try to close this defect somewhat. Intestinal continuity was then restored by performing an anastomosis between the proximal end of the proximal jejunum to the side of the Felix limb approximately 30 cm distal to the gastrojejunal anastomosis. This was accomplished with a blue load of the 60 mm stapler. The residual opening was closed in two layers with a running suture of absorbable 3-0 V-Loc. The area was then irrigated gently and inspected. There appeared to be excellent vascularity. The staple lines all appeared excellent with excellent suture closures of the residual defects. I elected to have anesthesia remove the orogastric tube and replace this with a nasogastric tube. The small devitalized segment of small bowel that had been resected was placed in a specimen retrieval bag. All needles and instruments were accounted for. I then returned to the patient's side. The robotic instruments were all removed and the robot patient cart was withdrawn. Using a hand laparoscope, final inspection was performed with a little additional irrigation and removal of any free fluid in the abdomen. The patient was returned to a flat position. The abdomen was deflated and the trocars were all removed. The specimen retrieval bag was recovered through the 12 mm port in the right lower quadrant. Because of the patient's thin build, it was possible to close the 12 mm site in layers with 2-0 Vicryl sutures. The skin incisions were all closed with buried 4-0 Vicryl and Steri-Strips. Light dressings were applied. The patient's Fair catheter was removed. She tolerated the procedure well. She was awakened in the operating room, extubated and moved to the recovery room in stable condition.
[2020-12-04 14:00] VITALS: BP 112/59
[2020-12-04] MEDS ORDERED: ACETAMINOPHEN/CODEINE 300MG/30MG 12.5 ML UDC PO PRN (16:45)
--- NOTE | 2020-12-04 17:30 | IPN ---
PROGRESS NOTE DATE: 12/04/2020 HISTORY: Patient is now postoperative day #1 from a robotic-assisted laparoscopic Felix-en-Y gastrojejunostomy for recurrent gastric outlet obstruction. She denies significant pain. She denies any nausea or vomiting. Vital signs show that she has been afebrile since surgery. Her pulse is in the 80s and low 90s, and her blood pressure is excellent. Intake and output show that yesterday she had total of 2800 in with 1520 out. PHYSICAL EXAMINATION: The patient is awake and alert. She appears fairly comfortable. She is sitting up on the edge of the bed when I come in. Her nasogastric tube is in place, and it has had no output. Heart exam shows a regular rate and rhythm. Lungs are clear to auscultation. Abdomen is flat and soft. She has clean dressings on her lower abdominal incisions. She has a few bowel sounds present. LABORATORY STUDIES: Show a white count of 7, hemoglobin 10, hematocrit 32, and a platelet count of 259,000. Differential count shows 75% neutrophils, 16% lymphocytes, and 8% monocytes. Chemistry profile shows a sodium of 139, potassium 3.4, chloride 107, CO2 of 21, BUN 11, creatinine 0.5, and a glucose of 70. IMPRESSION: Patient is doing very well now, one day postoperative from a Felix-en-Y gastrojejunostomy for recurrent gastric outlet obstruction. PLAN: Patient's nasogastric (NG) tube was removed. On removal, there appeared to be a kink in the distal tube. She tolerated this well. She will be allowed to take some ice chips during the course of the day. She is encouraged to be up ambulatory. I will order some oral Tylenol or Tylenol with codeine to take as needed for pain. She will be reassessed later in the day and may be advanced to some sips of clear liquids if she is doing well without the NG tube.
[2020-12-04 18:00] VITALS: BP 106/56
[2020-12-04 22:00] VITALS: BP 117/55
[2020-12-05 02:00] VITALS: BP 121/62
[2020-12-05] MEDS: LR 1,000 ML IV SCH (03:26)
[2020-12-05 06:00] VITALS: BP 119/66
[2020-12-05] MEDS: PANTOPRAZOLE 40MG VIAL (C9113 PER 1) IV SCH ×2 (08:59→21:48)
[2020-12-05] MEDS ORDERED: KCL 10MEQ/100ML SWI (KRUN) 10 MEQ in IV 1 EA IV ONE (09:00)
[2020-12-05 10:00] VITALS: BP 104/56
--- NOTE | 2020-12-05 10:51 | IPNPDOC ---
Text Note Date of Service The patient was seen on 12/05/20. NOTE No acute events overnight. She is tolerating diet without any nausea or emesis. She is ambulating and passing flatus, no BM yet. VSSAF NAD abd - soft, TTP appropriate, incisions c/d/i A) 49y/o female s/p gastrojejunostomy P) d/c IVF clq diet ambulate advance diet in am after a BM Venkat Bernardo DO VS,Fishbone, I+O VS, Fishbone, I+O Vital Signs Date Time Temp Pulse Resp B/P (MAP) Pulse Ox O2 Delivery O2 Flow Rate FiO2 12/05/20 10:00 98.7 85 18 104/56 (72) 98 Room Air I&O- Last 24 Hours up to 6 AM 12/05/20 06:00 Intake Total 2290 ml Output Total 1075 ml Balance 1215 ml LIONEL BERNARDO DO Dec 05, 2020 10:50
[2020-12-05 14:00] VITALS: BP 119/68
[2020-12-05 18:00] VITALS: BP 115/63
[2020-12-05 22:00] VITALS: BP 131/68
[2020-12-06 06:00] VITALS: BP 122/72
--- NOTE | 2020-12-06 08:09 | IPNPDOC ---
Text Note Date of Service The patient was seen on 12/06/20. NOTE No acute events overnight. She is tolerating diet without any nausea or emesis. She is ambulating and passing flatus, but still no BM yet. VSSAF NAD abd - soft, TTP appropriate, incisions c/d/i A) 49y/o female s/p gastrojejunostomy P) full liquid diet ambulate will likely advance diet in am and d/c home after a BM. Venkat Bernardo DO VS,Fishbone, I+O VS, Fishbone, I+O Vital Signs Date Time Temp Pulse Resp B/P (MAP) Pulse Ox O2 Delivery O2 Flow Rate FiO2 12/06/20 06:00 97.5 82 20 122/72 (89) 96 12/05/20 18:00 Room Air I&O- Last 24 Hours up to 6 AM 12/06/20 06:00 Intake Total 2940 ml Output Total 800 ml Balance 2140 ml LIONEL BERNARDO DO Dec 06, 2020 08:09
[2020-12-06] MEDS: SENOKOT S TAB PO SCH ×2 (09:34→21:40)
[2020-12-06] MEDS: PANTOPRAZOLE 40MG VIAL (C9113 PER 1) IV SCH ×2 (09:34→21:40)
[2020-12-06 10:00] VITALS: BP 124/76
[2020-12-06 14:00] VITALS: BP 124/70
[2020-12-06 22:00] VITALS: BP 127/59
[2020-12-07 02:00] VITALS: BP 133/73
[2020-12-07 06:00] VITALS: BP 126/60
[2020-12-07 06:43] LABS: HEMATOCRIT 30.6 % (36.0-47.0); HEMOGLOBIN 10.2 g/dl (12.0-15.5); MEAN CORPUSCULAR HGB CONC 33.3 g/dl (32.0-36.5); MEAN CORPUSCULAR VOLUME 86.9 fl (80.0-96.0); PLATELET COUNT, AUTOMATED 242 10^3/uL (150-450); RED BLOOD COUNT 3.52 10^6/uL (4.00-5.40); WHITE BLOOD COUNT 4.2 10^3/uL (4.0-10.0)
[2020-12-07 07:20] LABS: ALBUMIN 2.9 GM/DL (3.2-5.2); ALT/SGPT 25 U/L (12-78); BILIRUBIN,TOTAL 0.5 MG/DL (0.2-1.0); BLOOD UREA NITROGEN 4 MG/DL (7-18); CALCIUM LEVEL 8.5 MG/DL (8.5-10.1); CARBON DIOXIDE LEVEL 34 MEQ/L (21-32); CHLORIDE LEVEL 102 MEQ/L (98-107); CREATININE FOR GFR 0.45 MG/DL (0.55-1.30); GLOMERULAR FILTRATION RATE > 60.0 (>51); GLUCOSE, FASTING 97 MG/DL (70-100); POTASSIUM SERUM 3.2 MEQ/L (3.5-5.1); SODIUM LEVEL 143 MEQ/L (136-145)
[2020-12-07] MEDS: SENOKOT S TAB PO SCH (09:00)
[2020-12-07] MEDS: PANTOPRAZOLE 40MG VIAL (C9113 PER 1) IV SCH (09:30)
[2020-12-07 10:00] VITALS: BP 106/66
--- NOTE | 2020-12-07 14:43 | DS.PDOC ---
Discharge Summary General Date of Admission Dec 03, 2020 at 06:12 Date of Discharge 12/07/20 Attending Physician: Milad Edouard Discharge Summary PROCEDURES PERFORMED DURING STAY: Robotic-assisted laparoscopic Felix-en-Y gastrojejunostomy as per Dr Edouard 12/03/20. ADMITTING DIAGNOSES: Peptic ulcer disease with gastric obstruction DISCHARGE DIAGNOSES: Peptic ulcer disease with gastric obstruction S/P Robotic-assisted laparoscopic Felix-en-Y gastrojejunostomy as per Dr Edouard 12/03/20. HISTORY OF PRESENT ILLNESS: The patient is a 49-year-old female with long- standing history of peptic ulcer disease leading to gastric outlet obstruction. The patient presented with a complete obstruction in April 2020 with persistent obstructive symptoms despite medical therapy. The patient underwent RA pyloroplasty with truncal vagotomy 10/20/[address] Edouard. However she returned to the hospital a month later with evidence of recurrent outlet obstruction. The patient was subsequently recommended to proceed with RA laparoscopic Felix-en-Y gastrojejunostomy as per Dr Edouard. HOSPITAL COURSE: The pt is s/p Robotic-assisted laparoscopic Felix-en-Y gastrojejunostomy as per Dr Edouard 12/03/20. The patient tolerated the procedure well and has not reported any significant pain. No nausea or vomiting. By postoperative day one the patient's NG tube was removed. She was advanced to clear liquids which she tolerated well. IV fluids were discontinued 12/05 and 12/06 the patient was advanced to full liquids. She was out of bed and ambulating. Patient remained afebrile throughout her stay with no leukocytosis. On the morning of 12/07/20 the patient was examined and reviewed by Dr. Edouard. Although the patient was noted to have some mild abdominal distention in the LUQ, she had had 1780cc liquids over the past 24 hours with no obstructive symptoms, the patient was not reporting any nausea or vomiting, no abdominal pain or epigastric pain. The patient did have a bowel movement on 12/07/20. Patient remained afebrile throughout her stay. On the day of discharge the patient's hemoglobin was noted to be 10.2 which is stable from admission. Potassium was noted to be 3.2, this is also her baseline of 3.2-3.4. The patient was felt stable for discharge with recommendation to continue full liquids until follow- up in the office with Dr. Edouard. DISCHARGE MEDICATIONS: Please see below. ALLERGIES: Please see below. PHYSICAL EXAMINATION ON DISCHARGE: VITAL SIGNS: Please see below. GENERAL: No acute distress, out of bed to the chair. Ambulating in the room. HEENT: Moist mucous membranes CARDIOVASCULAR EXAMINATION: Regular rate and rhythm. RESPIRATORY EXAMINATION: Clear to auscultation ABDOMINAL EXAMINATION: Soft, some mild distention was noted LUQ, BS present, Steri-Strips intact over her surgical sites. No erythema, drainage or signs of infection. EXTREMITIES: Trace edema noted around the ankles bilaterally. LABORATORY DATA: Please see below. DISCHARGE INSTRUCTIONS: Discharge home Light activity as tolerated Continue full liquids until follow-up with Dr Edouard in 1 week. The patient is advised to eat frequent small meals throughout the day. The patient is advised to call back to the office with nausea, vomiting, increasing abdominal distention or abdominal or epigastric pain. Continue Protonix 40 mg by mouth twice a day. Okay to shower, Keep surgical sites clean and dry, allow Steri-Strips to fall off on their own. DISCHARGE CONDITION: Stable. TIME SPENT ON DISCHARGE: Greater than 30 minutes. Vital Signs/I&Os Vital Signs Date Time Temp Pulse Resp B/P (MAP) Pulse Ox O2 Delivery O2 Flow Rate FiO2 12/07/20 10:00 98.3 113 16 106/66 (79) 98 Room Air I&O- Last 24 Hours up to 6 AM 12/07/20 05:59 Intake Total 1930 ml Output Total 2275 ml Balance -345 ml Laboratory Data Labs 24H Laboratory Tests 2 12/07/20 06:16: Nucleated Red Blood Cells % (auto) 0.0, Anion Gap 7L, Glomerular Filtration Rate > 60.0, Calcium Level 8.5, Total Bilirubin 0.5, Aspartate Amino Transf (AST/SGOT) 22, Alanine Aminotransferase (ALT/SGPT) 25, Alkaline Phosphatase 50, Total Protein 6.0L, Albumin 2.9L, Albumin/Globulin Ratio 0.9L CBC/BMP Laboratory Tests 12/07/20 06:16 Discharge Medications Scheduled Pantoprazole Sodium (Pantoprazole Sodium) 40 Mg Tablet., 40 MG PO BID, (Reported) Scheduled PRN Acetaminophen (Acetaminophen) 325 Mg Tablet, 650 MG PO Q6HP PRN for MILD PAIN or TEMP > 100.4 Allergies Coded Allergies: No Known Allergies (Unverified , 12/01/20) Attending Note Attending Note Doing well on morning of 12/07. I saw patient with Daily Rivera. Wounds clean and dry. Abdomen mildly full on left but with active BS and soft and without undue tenderness. Has tolerated significant fluids. Having flatus. Patient counselled to call for any problems. Remain on full liquids and eat small amts throughout the day. Daily Rivera Dec 07, 2020 14:43 Milad Edouard Dec 07, 2020 19:46
== END 2020-12-07 11:17 | disposition home or self-care (01) | DRG 328 ==
LOC: M OR 06:12 → M MSPAV 13:29
PROVIDERS: ADMIT Surgery; ATTEND Surgery
PROC: 0DBA4ZZ Excision of Jejunum, Percutaneous Endoscopic Approach (ICD-10-PCS; 2020-12-03)
PROC: 8E0W4CZ Robotic Assisted Procedure of Trunk Region, Percutaneous Endoscopic Approach (ICD-10-PCS; 2020-12-03)
PROC: 0D1 Gastrointestinal System, Bypass (ICD-10-PCS; principal; 2020-12-03 07:30)
DX: K31.1 Adult hypertrophic pyloric stenosis (principal)

== ENCOUNTER → 2021-03-28 | Outpatient (CLI) | payer OTHER ==
[~2021-03-28] MED LIST changes: +VITMTA PO
== END ==
LOC: M LABSMTC 08:38
PROVIDERS: ATTEND Anesthesiology
DX: Z01.818 Encounter for other preprocedural examination (principal); Z11.52 Encounter for screening for COVID-19

== ENCOUNTER 2021-04-02 09:32 | Day surgery (SDC) | payer OTHER ==
[~2021-04-02] VITALS: Ht 154.9 cm; Wt 48.5 kg
[~2021-04-02 09:32] MED LIST changes: +LIDOCAINE 2% 100MG/5ML SDV (FOR ANES.) As Ordered ONE; +NS 1,000 ML IV ONE; +fentaNYL 100 MCG/2 ML INJECTION (J3010) As Ordered ONE; +propofoL 200 MG/20 ML VIAL As Ordered ONE
--- NOTE | 2021-04-02 12:07 | ROOR ---
Patient Name: Dustin Alfaro Procedure Date: 04/02/2021 11:08 AM Date of : 1970 Age: 50 Room: [facility] Gender: Female Note Status: Finalized Procedure: Upper GI endoscopy Indications: Follow-up of pyloric stenosis Providers: Jayy Esparza MD Referring MD: RUI LAUGHLIN MD Requesting Provider: Medicines: Monitored Anesthesia Care Complications: No immediate complications. Procedure: Pre-Anesthesia Assessment: - Prior to the procedure, a History and Physical was performed, and patient medications and allergies were reviewed. The patient is competent. The risks and benefits of the procedure and the sedation options and risks were discussed with the patient. All questions were answered and informed consent was obtained. Patient identification and proposed procedure were verified by the physician, the nurse and the anesthesiologist in the procedure room. Mental Status Examination: alert and oriented. Airway Examination: normal oropharyngeal airway and neck mobility. Respiratory Examination: clear to auscultation. CV Examination: normal. Prophylactic Antibiotics: The patient does not require prophylactic antibiotics. Prior Anticoagulants: The patient has taken no previous anticoagulant or antiplatelet agents. ASA Grade Assessment: II - A patient with mild systemic disease. After reviewing the risks and benefits, the patient was deemed in satisfactory condition to undergo the procedure. The anesthesia plan was to use monitored anesthesia care (MAC). Immediately prior to administration of medications, the patient was re-assessed for adequacy to receive sedatives. The heart rate, respiratory rate, oxygen saturations, blood pressure, adequacy of pulmonary ventilation, and response to care were monitored throughout the procedure. The physical status of the patient was re-assessed after the procedure. The Endoscope was introduced through the mouth, and advanced to the second part of duodenum. The upper GI endoscopy was accomplished without difficulty. The patient tolerated the procedure well. Findings: The examined esophagus was normal. The Z-line was regular and was found at the gastroesophageal junction. Evidence of a gastrojejunostomy was found in the gastric body (greater curvature). This was characterized by congestion and an intact staple line. A deformity was found at the pylorus and at the pyloroplasty ( likely from prior healed ulcer). Normal mucosa was found in the second portion of the duodenum, in the third portion of the duodenum and in the fourth portion of the duodenum. Normal mucosa was found in the jejunum. Impression: - Normal esophagus. - Z-line regular, at the gastroesophageal junction. - A gastrojejunostomy was found, characterized by congestion and an intact staple line. - Deformity in the pylorus and in the pyloroplasty (likely from prior healed ulcer). - Normal mucosa was found in the second portion of the duodenum, in the third portion of the duodenum and in the fourth portion of the duodenum. - Normal mucosa was found in the jejunum. - No specimens collected. Recommendation: - Patient has a contact number available for emergencies. The signs and symptoms of potential delayed complications were discussed with the patient. Return to normal activities tomorrow. Written discharge instructions were provided to the patient. - High fiber diet. - Continue present medications. - No ibuprofen, naproxen, or other non-steroidal anti-inflammatory drugs. - Return to GI clinic if persistent symptoms or new symptoms. - Return to primary care physician. 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 All rights reserved. The codes documented in this report are preliminary and upon churn driller helper review may be revised to meet current compliance requirements. Jayy Esparza MD Jayy Esparza MD 04/02/2021 12:06:36 PM Electronically signed by Jayy Esparza MD Number of Addenda: 0 Note Initiated On: 04/02/2021 11:08 AM Estimated Blood Loss: Estimated blood loss: none.
[2021-04-02 12:15] VITALS: BP 118/62
--- NOTE | 2021-04-02 12:30 | ROOR ---
Patient Name: Dustin Alfaro Procedure Date: 04/02/2021 11:10 AM Date of : 1970 Age: 50 Room: [facility] Gender: Female Note Status: Finalized Procedure: Colonoscopy Indications: Screening for colorectal malignant neoplasm Providers: Jayy Esparza MD Referring MD: RUI LAUGHLIN MD Requesting Provider: Medicines: Monitored Anesthesia Care Complications: No immediate complications. Procedure: Pre-Anesthesia Assessment: - Prior to the procedure, a History and Physical was performed, and patient medications and allergies were reviewed. The patient is competent. The risks and benefits of the procedure and the sedation options and risks were discussed with the patient. All questions were answered and informed consent was obtained. Patient identification and proposed procedure were verified by the physician, the nurse and the anesthesiologist in the procedure room. Mental Status Examination: alert and oriented. Airway Examination: normal oropharyngeal airway and neck mobility. Respiratory Examination: clear to auscultation. CV Examination: normal. Prophylactic Antibiotics: The patient does not require prophylactic antibiotics. Prior Anticoagulants: The patient has taken no previous anticoagulant or antiplatelet agents. ASA Grade Assessment: II - A patient with mild systemic disease. After reviewing the risks and benefits, the patient was deemed in satisfactory condition to undergo the procedure. The anesthesia plan was to use monitored anesthesia care (MAC). Immediately prior to administration of medications, the patient was re-assessed for adequacy to receive sedatives. The heart rate, respiratory rate, oxygen saturations, blood pressure, adequacy of pulmonary ventilation, and response to care were monitored throughout the procedure. The physical status of the patient was re-assessed after the procedure. The Colonoscope was introduced through the anus and advanced to the terminal ileum, with identification of the appendiceal orifice and IC valve. The colonoscopy was performed without difficulty. The patient tolerated the procedure well. The quality of the bowel preparation was good. The terminal ileum, ileocecal valve, appendiceal orifice, and rectum were photographed. Scope insertion time was 3 minutes. Scope withdrawal time was 8 minutes. The total duration of the procedure was 11 minutes. Findings: The perianal and digital rectal examinations were normal. The terminal ileum appeared normal. The left colon was moderately tortuous. Non-bleeding external and internal hemorrhoids were found during retroflexion. The hemorrhoids were medium-sized. No other significant abnormalities were identified in a careful examination of the remainder of the colon. Impression: - The examined portion of the ileum was normal. - Tortuous colon. - Non-bleeding external and internal hemorrhoids. - No specimens collected. Recommendation: - Patient has a contact number available for emergencies. The signs and symptoms of potential delayed complications were discussed with the patient. Return to normal activities tomorrow. Written discharge instructions were provided to the patient. - High fiber diet. - Continue present medications. - Repeat colonoscopy in 10 years for screening purposes. - Return to GI clinic if persistent symptoms or new symptoms. - Return to primary care physician. Procedure Code(s): --- Professional --- 71839, Colonoscopy, flexible; diagnostic, including collection of specimen(s) by brushing or washing, when performed (separate procedure) Diagnosis Code(s): --- Professional --- Z12.11, Encounter for screening for malignant neoplasm of colon K64.8, Other hemorrhoids Q43.8, Other specified congenital malformations of intestine CPT copyright 2019 [employer]. All rights reserved. The codes documented in this report are preliminary and upon chamber walker review may be revised to meet current compliance requirements. Jayy Esparza MD Jayy Esparza MD 04/02/2021 12:29:36 PM Electronically signed by Jayy Esparza MD Number of Addenda: 0 Note Initiated On: 04/02/2021 11:10 AM Estimated Blood Loss: Estimated blood loss was minimal.
== END 2021-04-02 13:00 | disposition home or self-care (01) ==
LOC: M OPP 09:32
PROVIDERS: ATTEND Internal Medicine Gastroenterology
DX: Z12.11 Encounter for screening for malignant neoplasm of colon (principal); Q43.8 Other specified congenital malformations of intestine; K64.8 Other hemorrhoids; Z98.0 Intestinal bypass and anastomosis status; K31.89 Other diseases of stomach and duodenum; K91.89 Other postprocedural complications and disorders of digestive system; K31.1 Adult hypertrophic pyloric stenosis; Z79.899 Other long term (current) drug therapy
CPT/HCPCS: 43235; 45378; J3010